=== PATIENT | male | born 1975 | race Caucasian/White ===

== ENCOUNTER 2020-05-21 15:05 | Outpatient (REF) | payer OTHER, SELFPAY | END 2020-05-21 15:06 | disposition home or self-care (01) | LOC: HO.LAB 15:05 | PROVIDERS: Visit Provider Internal Medicine | DX: Z20.828 Contact with and (suspected) exposure to other viral communicable diseases (principal) | CPT/HCPCS: C9803; U0003 ==

== ENCOUNTER 2020-05-26 07:56 | Outpatient (REF) | payer OTHER, SELFPAY | END 2020-05-26 07:57 | disposition home or self-care (01) | LOC: HO.LAB 07:56 | PROVIDERS: PCP Internal Medicine; Visit Provider Internal Medicine | DX: Z20.828 Contact with and (suspected) exposure to other viral communicable diseases (principal) | CPT/HCPCS: C9803; U0003 ==

== ENCOUNTER 2021-06-15 10:25 | Outpatient (REF) | payer OTHER, SELFPAY | END 2021-06-15 10:26 | disposition home or self-care (01) | LOC: HO.HMGCLDS 10:25 | PROVIDERS: Visit Provider Internal Medicine | DX: Z20.822 Contact with and (suspected) exposure to COVID-19 (principal) | CPT/HCPCS: C9803; U0003; U0005 ==

== ENCOUNTER 2021-10-01 08:30 | Outpatient (REF) | payer OTHER, SELFPAY ==
--- NOTE | ~2021-10-01 | MM_ITS ---
EXAMINATION: MM DIAGNOSTIC DIGITAL BREAST TOMOSYNTHESIS, BILATERAL US DIAGNOSTIC ULTRASOUND BREAST, LEFT CLINICAL INFORMATION: Male age 46 with left breast retroareolar pain and fullness for 3-4 months. No prior breast imaging. COMPARISON: None (current study represents initial baseline exam). TECHNIQUE: Digital breast tomosynthesis is performed in both the craniocaudal and mediolateral oblique views along with computer-aided detection (CAD). Synthesized 2D images are generated from the tomosynthesis. Additional spot left CC and spot left ML views are obtained. Ultrasound left breast is performed, targeted to the area of symptoms retroareolar and periareolar region. Grayscale imaging and color Doppler are performed without and with harmonics. FINDINGS: There are scattered areas of fibroglandular density (ACR BI-RADS breast composition Category b). There is asymmetric moderate gynecomastia involving the retroareolar and anterior central left breast. There is no underlying mass or architectural abnormality. No abnormal calcifications. Right breast has scattered benign stromal markings. The axilla and skin contours are unremarkable. Ultrasound left breast demonstrates retroareolar gynecomastia, better appreciated on the mammography. There is no mass or architectural abnormality or focal duct ectasia. No skin thickening or edema tracking in the soft tissue planes. Results are discussed with the patient at time of visit. MM/MM tomosynthesis diagnostic BI IMPRESSION: Asymmetric moderate gynecomastia, left breast. Right breast unremarkable. ASSESSMENT: BI-RADS 2: Benign RECOMMENDATION: Patient should be managed based on the clinical impression. If clinically indicated, further evaluation may be considered with surgical consult. Decision to proceed with biopsy should be based on clinical grounds and degree of clinical concern.
== END 2021-10-01 08:31 | disposition home or self-care (01) ==
LOC: HO.MAMMO 08:30
PROVIDERS: Visit Provider Internal Medicine
DX: N63.23 Unspecified lump in the left breast, lower outer quadrant (principal)
CPT/HCPCS: 76642; 77062; 77066

== ENCOUNTER 2023-05-23 16:41 | Outpatient (AMB) | payer OTHER, SELFPAY ==
--- NOTE | 2023-05-23 16:42 | A.OFFPC_ITS ---
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 Allergies No Known Drug Allergies Allergy (Unknown, Verified 05/23/23 16:43) NONE Medication List - Last Reconciled 05/23/23 by Tavares Ty MD cholestyramine-aspartame 4 gram (Prevalite) 4 grams PO BID omeprazole 20 mg PO DAILY 90 days Tobacco use date assessed: 05/23/23 Dental Screening Dental Screen Date: 05/23/23 Did you have a dental visit in the last 12 months?: Yes Did you have a dental problem in the last 6 months where you did not have access to dental care?: No Was dental information given to patient?: Patient has dentist HPI PHy HPI Details 48-year-old obese male with hypercholest erolemia and GERD last seen in September 2021 patient is here for physical exam. Patient had a left breast mass at that time and an ultrasound was requested. Review of the notes say November 2021 was seen [facility] the [facility] for upper respiratory tract infection. Ultrasound showing a symmetric moderate gynecomastia left breast right breast a normal. intermittent eye pain- aleve- , ? concern on prevalite side effects. dizzy spell occ nause. occ tinnitus, , wakes up sob at times., tired all day snores, watching tv sleeps, no sleepy on driving, [facility] Medical History (Updated 05/23/23 @ 17:11 by Tavares Ty MD) Left breast mass Acne Hypercholesterolemia GERD (gastroesophageal reflux disease) Vitamin D deficiency Obesity (BMI 30-39.9) Surgical History (Updated 09/22/21 @ 20:57 by Tavares Ty MD) History of placement of ear tubes Hx of tonsillectomy History of cholecystectomy Family History (Updated 05/23/23 @ 17:05 by Tavares Ty MD) Mother Myocardial infarct Maternal Aunt Myocardial infarct Paternal Aunt Brain cancer Paternal Uncle Throat cancer Prostate carcinoma Social History (Updated 09/28/21 @ 12:18 by Tavares Ty MD) Housing: House Alcohol intake: never Patient Tobacco Use Status: Never used Tobacco e-Cigarette/Vaping Use: Never Used Second Hand Smoke Exposure: No service: No Current occupational status: employed Cognitive needs: No Hearing needs: No Vision needs: No Questionnaire PHQ-9 Over the last 2 weeks, how often have you been bothered by any of the following problems? 1. Little interest or pleasure in doing things: not at all 2. Feeling down, depressed, or hopeless: not at all 3. Trouble falling or staying asleep, or sleeping too much: not at all 4. Feeling tired or having little energy: not at all 5. Poor appetite or overeating: not at all 6. Feeling bad about yourself - or that you are a failure or have let yourself or your family down: not at all 7. Trouble concentrating on things, such as reading the newspaper or watching television: not at all 8. Moving or speaking so slowly that other people could have noticed. Or the opposite - being so fidgety or restless that you have been moving around a lot more than usual: not at all 9. Thoughts that you would be better off or of hurting yourself in some way: not at all Total score: 0 Depression Screening Interpretation: Negative Depression Screening Done: Yes Source: Developed by Drs. Santosh Ortiz, Codie Schulz, Paramjit Acuña and colleagues, with an educational victor m from [employer]. Thrive Questionnaire Date Thrive assessed: 05/23/23 I am a: Patient What is your living situation today?: I have a steady place to live Within the past 12 months, did the food you bought not last and you didn't have the money to get more?: Never true Within the past 12 months, did you worry whether your food would run out before you got money to buy more?: Never true Do you have trouble paying for medicines?: No Do you have trouble getting transportation to medical appointments?: No Do you have trouble paying your heating and electricity bill?: No Do you have trouble taking care of your child, family member or friend?: No Do you have trouble with day-to-day activities such as bathing, preparing meals, shopping, managing finances, etc.?: No Are you currently unemployed and looking for a job?: No Are you interested in more education?: No AUDIT C Alcohol Use Questionnaire (AUDIT-C) 1. How often do you have a drink containing alcohol?: Monthly or less 2. How many drinks containing alcohol do you have on a typical day when you are drinking?: 1 or 2 3. How often do you have six or more drinks on one occasion?: Never Total Score: 1 KIMMY-7 AMB Questionnaire KIMMY-7 Date KIMMY - 7 assessed: 05/23/23 Feeling nervous, anxious, or on edge: 0 = Not at all Not being able to stop or control worryin = Not at all Worrying too much about different things: 0 = Not at all Trouble relaxin = Not at all Being so restless that it is hard to sit still: 0 = Not at all Becoming easily annoyed or irritable: 0 = Not at all Feeling afraid as if something awful might happen: 0 = Not at all Total KIMMY-7 score (0-4 normal; 5-9 mild; 10-14 moderate; 15-21 severe): 0 Source: Developed by Drs. Santosh Ortiz, Codie Schulz, Paramjit Acuña and colleagues, with an educational victor m from [employer]. Review of Systems Const Denies poor appetite and Denies weakness Eyes Denies no additional complaints ENT Reports Normal hearing present, Denies dizziness, Denies nasal congestion, Denies tinnitus and Denies sore throat Card Denies chest pain, Denies syncope, Denies rapid heart rate and Denies dyspnea Resp Denies cough and Denies dyspnea GI Denies change in stool character, Reports constipation, Denies diarrhea, Denies nausea and Denies vomiting Denies dysuria and Denies urinary frequency Neuro Reports Normal hearing present, Denies confusion, Denies dizziness, Denies syncope and Denies weakness Psych Denies confusion Physical exam (Primary Care) Vital Signs: Last Vital Signs Pulse 93 05/23/23 16:43 BP 116/88 05/23/23 16:43 Pulse Ox 97 05/23/23 16:43 Oxygen Delivery Method Room Air 05/23/23 16:43 BMI result Body Mass Index 38.5 Tobacco/Smoking Status: Tobacco use Status Tobacco use date assessed 05/23/23 05/23/23 16:48 Patient Tobacco Use Status Never used Tobacco 05/23/23 16:43 e-Cigarette/Vaping Use Never Used 05/23/23 16:43 PHQ-9: PHQ-9 Score PHQ-9: Total score 0 05/23/23 16:48 Depression Screening Interpretation: Negative Thrive Assessment: Date of Thrive Assessment Date Thrive assessed 05/23/23 05/23/23 16:48 Const General: No confusion Orientation/consciousness: No confusion HENMT Head: Yes normocephalic Ears: external ears normal and TM's normal bilaterally Face and sinus: Yes normal facial exam Mouth: moist mucous membranes Throat: Yes tonsils normal Eyes Conjunctivae: conjunctivae normal Pupils: Equal, round and reactive pupils present and Pupil accommodation reflex normal Direct Ophthalmoscopy: normal light reflex Neck Neck: No lymphadenopathy Thyroid: Thyroid normal Chest Chest palpation & inspection: normal inspection of the chest Resp Effort & Inspection: normal respiratory effort and no audible wheezes Auscultation: clear to auscultation bilaterally, no crackles, no wheezes and lung sounds not diminished Cardio Rate: regular rate Rhythm: regular rhythm Peripheral pulses: radial pulses present and dorsalis pedis present GI Other: cologuard requested Palpation (GI): no masses Auscultation: normal bowel sounds and normoactive bowel sounds Rectal Exam - Male: Yes deferred Male General Exam: Yes normal external exam Skin General skin exam: no rashes or lesions noted Rashes: no rashes Neuro General: No confusion Cranial nerves: Yes Equal, round and reactive pupils present and Yes Normal hearing present Cognition (Neuro): normal cognition Gait exam (Neuro): Normal gait present Motor exam (neuro): 5/5 motor strength present throughout Deep tendon reflexes (DTR's): Right brachioradialis reflex intensity grade: 2+, Left brachioradialis reflex intensity grade: 2+, Right patellar reflex intensity grade: 2+ and Left patellar reflex intensity grade: 2+ Extrem General: No edema Assessment and Plan Assessment & Plan (1) Annual physical exam: Code(s): Z00.00 - Encounter for general adult medical examination without abnormal findings (2) Hypercholesterolemia: Code(s): E78.00 - Pure hypercholesterolemia, unspecified Plan: Avoid fried foods, chicken skin, eggs, butter margarine, pastries and meat. Be it pork or beef they have a lot of cholesterol LDL goal of less than 130 and triglyceride of less than 150. Blood work requested (3) GERD (gastroesophageal reflux disease): Code(s): K21.9 - Gastro-esophageal reflux disease without esophagitis Plan: Avoid the foods that causes that usually spicy foods, tomato products, juices, coffee, soda and foods that your sensitive to. After eating do not lie down, allow 3-4 hours before in lie down. And keep the head of bed above 30 degrees to avoid the acid from going up. 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 Panel Today E78.00 - Pure hypercholesterolemia, unspecified Complete Blood Count Auto Diff Today E78.00 - Pure hypercholesterolemia, unspecified Thyroid Stimulating Hormone Today E78.00 - Pure hypercholesterolemia, unspecified Vitamin B12 and Folate Today E78.00 - Pure hypercholesterolemia, unspecified Lipid Panel Today E78.00 - Pure hypercholesterolemia, unspecified Ferritin Today D64.9 - Anemia, unspecified IRON PROFILE Today D64.9 - Anemia, unspecified Reticulocyte Count Today D64.9 - Anemia, unspecified Free T4 (Free Thyroxine) Today E78.00 - Pure hypercholesterolemia, unspecified RT home sleep study Today G47.10 - Hypersomnia, unspecified Referrals Cologuard Test Z12.11 - Encounter for screening for malignant neoplasm of colon, Z12.12 - Encounter for screening for malignant neoplasm of rectum Coding Level of Care Code Est Pt Prev Care 40-64y(59314) Diagnoses Annual physical exam Z00.00 Hypercholesterolemia E78.00 GERD (gastroesophageal reflux disease) K21.9 Obesity (BMI 30-39.9) E66.9 Bile salt-induced diarrhea K90.89 Anemia D64.9 Colon cancer screening Z12.11 Gynecomastia N62 Hypersomnia G47.10
[2023-05-23 16:43] VITALS: BP 116/88; PULSE 93; O2SAT 97; BMI 38.5
== END 2023-05-23 17:27 | disposition home or self-care (01) ==
PROVIDERS: Visit Provider Internal Medicine
DX: Z00.00 Encounter for general adult medical examination without abnormal findings (principal); E66.9 Obesity, unspecified; Z68.38 Body mass index [BMI] 38.0-38.9, adult; E78.00 Pure hypercholesterolemia, unspecified; K21.9 Gastro-esophageal reflux disease without esophagitis; K90.89 Other intestinal malabsorption; D64.9 Anemia, unspecified; Z12.11 Encounter for screening for malignant neoplasm of colon; N62 Hypertrophy of breast; G47.10 Hypersomnia, unspecified
CPT/HCPCS: 99396

== ENCOUNTER 2023-07-18 11:14 | Outpatient (AMB) | payer OTHER, SELFPAY ==
[2023-07-18 13:17] VITALS: BP 110/70; PULSE 75; TEMP 36.4; O2SAT 98; BMI 36.8
--- NOTE | 2023-07-18 13:17 | AM.OFFWIN_ITS ---
Intake Vital Signs 07/18/23 13:17 Height 6 ft 4 in Weight 136.985 kg BMI 36.8 BP 110/70 Blood Pressure Location Lt brachial Position Sitting Pulse 75 Pulse Source Pulse Oximeter Temp 97.6 F Temp Source Temporal Artery Scan Pulse Oximetry (%) 98 Intake Visit Reasons: EST/right eye pain sinus pressure(lobby) Intake Note: pt is here today for rt eye pain sinus pressure started today Patient Tobacco Use Status: Never used Tobacco Allergies No Known Drug Allergies Allergy (Unknown, Verified 05/23/23 16:43) NONE Do you need a note to return to daycare/school/sports/work: Yes HPI HPI Comments History of Present Illness Details 48 year old male positive for COVID abou t a week ago presents with si nus pressure, congestion and intermittent discomfort to his right eye, earlier this morning he experienced a sharp pain to his right eye and his right nostril. He reports he just feels congested in his having a lot of yellow/green discharge from his nose. at home was sick with similar symptoms. He does not seem to be improving. He recently saw an eye doctor who did a full examination and it was unremarkable. Patient denies headache, vision changes, dizziness, weakness, chest pain, shortness of breath, nausea, vomiting, abdominal pain On exam patient does have discomfort with palpation of facial sinuses. History and physical exam concerning for sinusitis. Unlikely wet macular degeneration, acute closed angle glaucoma. No signs of meningitis or encephalitis. Will treat for sinusitis with Augmentin and prednisone. Patient will call his eye doctor to go get seen due to right eye pain. He tells me he will call right now to see if he can get in today. Educated patient on diagnosis and treatment plan, answered all question, patient verbalizes understanding. At this time patient will be discharged home, advised to return with new or worsening symptoms. Educated on worrisome signs and symptoms and when to return. At this time I feel comfortable discharge home. [facility] Medical History Left breast mass Acne Hypercholesterolemia GERD (gastroesophageal reflux disease) Vitamin D deficiency Obesity (BMI 30-39.9) Surgical History History of placement of ear tubes Hx of tonsillectomy History of cholecystectomy Family History Mother Myocardial infarct Maternal Aunt Myocardial infarct Paternal Aunt Brain cancer Paternal Uncle Throat cancer Prostate carcinoma Social History Housing: House Alcohol intake: never Patient Tobacco Use Status: Never used Tobacco e-Cigarette/Vaping Use: Never Used Second Hand Smoke Exposure: No service: No Current occupational status: employed Cognitive needs: No Hearing needs: No Vision needs: No Review of Systems Const All systems reviewed & are unremarkable except as noted in HPI and below Physical Exam Vital Signs: vss Appearance: Alert.? Oriented X3.? No acute distress.? Head: Normocephalic, atraumatic, no step-offs or deformities. Discomfort with palpation of facial sinuses. Eyes: Pupils equal, round and reactive to light.? CVS: Normal heart rate and rhythm.? Pulses normal.? Respiratory: No respiratory distress.? Breath sounds normal.? Abdomen: Soft and nontender.? Skin: Skin warm and dry.? Normal skin color.? Normal skin turgor.? Extremities: No lower extremity edema.? No calf ttp. 5/5 strength to bilateral upper and lower extremities Neuro: Oriented X 3.? No motor deficit.? No sensory deficit. CN 2-12 intact Assessment & Plan Assessment & Plan (1) Sinusitis: Code(s): J32.9 - Chronic sinusitis, unspecified Plan Take your medications as prescribed. If you were prescribed antibiotics today, it is important that you take your medication to their entirety, do not skip any doses, do not finish them early. Follow-up with your primary care provider this week. Return to the emergency department with new or worsening symptoms. Such as fevers, chills, chest pain, shortness of breath, nausea, vomiting, dizziness, headache, vision changes, lethargy In case of emergency call 911 Medications: New amoxicillin-pot clavulanate 875-125 mg 1 tab PO BID 20 tabs 0RF 10 days prednisone 40 mg (2 x 20 mg) PO DAILY 10 tabs 0RF 5 days Coding Level of Care Code Est Pt Level 3 (20665) Diagnoses Sinusitis J32.9
== END 2023-07-18 13:58 | disposition home or self-care (01) ==
PROVIDERS: PCP Internal Medicine; Visit Provider Physician Assistant
DX: J32.9 Chronic sinusitis, unspecified (principal)
CPT/HCPCS: 99213

== ENCOUNTER 2024-06-22 16:18 | Outpatient (AMB) | payer OTHER, SELFPAY ==
[2024-06-22 16:23] VITALS: BP 110/84; PULSE 97; O2SAT 96; BMI 38.7
--- NOTE | 2024-06-22 16:23 | MHC.PC.OV ---
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 Accompanied by: Self / Same As Patient Allergies No Known Drug Allergies Allergy (Unknown, Verified 06/22/24 16:23) NONE Medication List - Last Reconciled 06/22/24 by Tavares Ty MD ascorbate calcium (vitamin C) 500 mg PO DAILY cholestyramine-aspartame 4 gram (Prevalite) 4 grams PO BID Tobacco use date assessed: 06/22/24 Dental Screening Dental Screen Date: 06/22/24 Did you have a dental visit in the last 12 months?: Yes Did you have a dental problem in the last 6 months where you did not have access to dental care?: No Was dental information given to patient?: Patient has dentist HPI Physical Exam HPI Details The patient is a 49-year-old male presenting with the need for follow-up on blood work results, which have previously indicated mild anemia and elevated liver enzymes that revealed a history of nonalcoholic fatty liver disease. The anemia presented with a hemoglobin level of 13.7, slightly below the normal range. The patient has a family history of cardiovascular disease and cancer, which increases his risk profile. Previously, an ultrasound exhibited fatty liver, a finding that requires ongoing monitoring. Additionally, the patient has experienced episodes of dizziness characterized as a heart-sinking sensation, accompanied by intermittent hot flashes but no palpitations or loss of consciousness. He reports subjective dizzy spells particularly exacerbated by stress or warmth but denies any nausea or vomiting. The symptoms seem not to interfere during work. He denies any history of smoking, substance use, or recreational drug use. The patient also describes experiencing heartburn sporadically, often after consuming spicy foods. Moreover, the patient has multiple cutaneous cysts; a newly noticed one near the sternum and another on the left shoulder, which seems to be enlarging. - Patient has engaged in nutritional improvements and increased physical activity, walking 30 minutes daily. - He has eliminated soda from his diet and avoids fried foods. - Patient declined flu vaccine but was advised on ongoing flu, COVID, RSV, and norovirus season risks. - Cologuard for colorectal cancer screening is ordered for at-home testing. - Occupation: Works in the [employer] industry; high screen time. - Exercise: Recently increased physical activity, walking 30 minutes daily. - Diet: Reduced soda consumption and fried food intake, occasionally indulges in spicy foods. - Family History: Family members with heart attacks, brain cancer, prostate cancer, throat cancer, and a stroke. - No substance use: Denies tobacco, alcohol, and recreational drug use. - Reports no issues with housing or employment status. - General: Denies fever or chills. - Head and Neck: Denies problems swallowing or hearing difficulties. - Cardiovascular: Denies chest pain but reports episodes of dizziness and heart-sinking sensation. - Respiratory: Denies shortness of breath. - Gastrointestinal: Reports intermittent heartburn associated with spicy food intake. - Genitourinary: Denies nocturia but reports normal urination. - Skin: Reports cutaneous cysts in the shoulder and chest areas. - Labs: Previous history of mild anemia with hemoglobin at 13.7 g/dL; elevated liver enzymes and triglycerides noted. [facility] Medical History Left breast mass Acne Hypercholesterolemia GERD (gastroesophageal reflux disease) Vitamin D deficiency Obesity (BMI 30-39.9) Surgical History History of placement of ear tubes Hx of tonsillectomy History of cholecystectomy Family History (Updated 06/22/24 @ 16:55 by Tavares Ty MD) Mother Myocardial infarct CVA (cerebral vascular accident) Maternal Aunt Myocardial infarct Paternal Aunt Brain cancer Paternal Uncle Throat cancer Prostate carcinoma Social History Housing: House Alcohol intake: never Patient Tobacco Use Status: Never used Tobacco e-Cigarette/Vaping Use: Never Used Second Hand Smoke Exposure: No service: No Current occupational status: employed Cognitive needs: No Hearing needs: No Vision needs: No Questionnaire PHQ-9 Over the last 2 weeks, how often have you been bothered by any of the following problems? 1. Little interest or pleasure in doing things: not at all 2. Feeling down, depressed, or hopeless: not at all 3. Trouble falling or staying asleep, or sleeping too much: not at all 4. Feeling tired or having little energy: several days 5. Poor appetite or overeating: several days 6. Feeling bad about yourself - or that you are a failure or have let yourself or your family down: not at all 7. Trouble concentrating on things, such as reading the newspaper or watching television: not at all 8. Moving or speaking so slowly that other people could have noticed. Or the opposite - being so fidgety or restless that you have been moving around a lot more than usual: not at all 9. Thoughts that you would be better off or of hurting yourself in some way: not at all Total score: 2 Source: Developed by Drs. Santosh Ortiz, Codie Schulz, Paramjit Acuña and colleagues, with an educational victor m from [employer]. Thrive Questionnaire Date Thrive assessed: 06/22/24 I am a: Patient What is your living situation today?: I have a steady place to live Within the past 12 months, did the food you bought not last and you didn't have the money to get more?: Never true Within the past 12 months, did you worry whether your food would run out before you got money to buy more?: Never true Do you have trouble paying for medicines?: No Do you have trouble getting transportation to medical appointments?: No Do you have trouble paying your heating and electricity bill?: No Do you have trouble taking care of your child, family member or friend?: No Do you have trouble with day-to-day activities such as bathing, preparing meals, shopping, managing finances, etc.?: No Are you currently unemployed and looking for a job?: No Are you interested in more education?: No Please select the resources that you would like help with: None Currently or been in a relationship where the following occur: I choose not to answer THRIVE Score: 0 AUDIT C Alcohol Use Questionnaire (AUDIT-C) 1. How often do you have a drink containing alcohol?: Never Total Score: 0 KIMMY-7 AMB Questionnaire KIMMY-7 Date KIMMY - 7 assessed: 06/22/24 Feeling nervous, anxious, or on edge: 0 = Not at all Not being able to stop or control worryin = Not at all Worrying too much about different things: 0 = Not at all Trouble relaxin = Not at all Being so restless that it is hard to sit still: 0 = Not at all Becoming easily annoyed or irritable: 0 = Not at all Feeling afraid as if something awful might happen: 0 = Not at all Total KIMMY-7 score (0-4 normal; 5-9 mild; 10-14 moderate; 15-21 severe): 0 Source: Developed by Drs. Santosh Ortiz, Codie Schulz, Paramjit Acuña and colleagues, with an educational victor m from [employer]. Review of Systems Const Denies poor appetite and Denies weakness Eyes Denies no additional complaints ENT Reports Normal hearing present, Denies dizziness, Denies nasal congestion, Denies tinnitus and Denies sore throat Card Denies chest pain, Denies syncope, Denies rapid heart rate and Denies dyspnea Resp Denies cough and Denies dyspnea GI Denies change in stool character, Reports constipation, Denies diarrhea, Denies nausea and Denies vomiting Denies dysuria and Denies urinary frequency Neuro Reports Normal hearing present, Denies confusion, Denies dizziness, Denies syncope and Denies weakness Psych Denies confusion Physical exam (Primary Care) Vital Signs: Last Vital Signs Pulse 97 06/22/24 16:23 BP 110/84 06/22/24 16:23 Pulse Ox 96 06/22/24 16:23 Oxygen Delivery Method Room Air 06/22/24 16:23 BMI result Body Mass Index 38.7 Tobacco/Smoking Status: Tobacco use Status Tobacco use date assessed 06/22/24 06/22/24 16:24 Patient Tobacco Use Status Never used Tobacco 06/22/24 16:24 e-Cigarette/Vaping Use Never Used 06/22/24 16:24 PHQ-9: PHQ-9 Score PHQ-9: Total score 2 06/22/24 16:51 Thrive Assessment: Date of Thrive Assessment Date Thrive assessed 06/22/24 06/22/24 16:24 Currently or been in a relationship where the following occur: I choose not to answer Const General: No confusion Orientation/consciousness: No confusion HENMT Head: Yes normocephalic Ears: external ears normal and TM's normal bilaterally Face and sinus: Yes normal facial exam Mouth: moist mucous membranes Throat: Yes tonsils normal Eyes Conjunctivae: conjunctivae normal Pupils: Equal, round and reactive pupils present and Pupil accommodation reflex normal Direct Ophthalmoscopy: normal light reflex Neck Neck: No lymphadenopathy Thyroid: Thyroid normal Chest Chest palpation & inspection: normal inspection of the chest Resp Effort & Inspection: normal respiratory effort and no audible wheezes Auscultation: clear to auscultation bilaterally, no crackles, no wheezes and lung sounds not diminished Cardio Rate: regular rate Rhythm: regular rhythm Peripheral pulses: radial pulses present and dorsalis pedis present GI Palpation (GI): no masses Auscultation: normal bowel sounds and normoactive bowel sounds Rectal Exam - Male: Yes deferred Skin General skin exam: no rashes or lesions noted Rashes: no rashes Neuro General: No confusion Cranial nerves: Yes Equal, round and reactive pupils present and Yes Normal hearing present Cognition (Neuro): normal cognition Gait exam (Neuro): Normal gait present Motor exam (neuro): 5/5 motor strength present throughout Deep tendon reflexes (DTR's): Right brachioradialis reflex intensity grade: 2+, Left brachioradialis reflex intensity grade: 2+, Right patellar reflex intensity grade: 2+ and Left patellar reflex intensity grade: 2+ Extrem General: No edema Shoulder/upper arm images: 1. 4 by 4 cm mass no redness 2. 3by 3 cm 3. 2 by 2 cm mass noted on the skin Coding Level of Care Code Est Pt Prev Care 40-64y(92286) Diagnoses Annual physical exam Z00.00 Obesity (BMI 30-39.9) E66.9 GERD (gastroesophageal reflux disease) K21.9 Hypercholesterolemia E78.00 LFT elevation R79.89 Anemia D64.9 Colon cancer screening Z12.11 Epidermal cyst L72.0 Assessment & Plan Assessment & Plan (1) Annual physical exam: Code(s): Z00.00 - Encounter for general adult medical examination without abnormal findings Category: Medical (2) Obesity (BMI 30-39.9): Code(s): E66.9 - Obesity, unspecified Category: Medical (3) GERD (gastroesophageal reflux disease): Code(s): K21.9 - Gastro-esophageal reflux disease without esophagitis Category: Medical (4) Hypercholesterolemia: Code(s): E78.00 - Pure hypercholesterolemia, unspecified Category: Medical (5) LFT elevation: Code(s): R79.89 - Other specified abnormal findings of blood chemistry Category: Medical (6) Anemia: Code(s): D64.9 - Anemia, unspecified Category: Medical (7) Colon cancer screening: Code(s): Z12.11 - Encounter for screening for malignant neoplasm of colon Category: Medical (8) Epidermal cyst: Comment: L shoulder , Sternal area x 2 Code(s): L72.0 - Epidermal cyst Category: Medical Plan - Schedule ultrasound to reassess liver condition and monitor fatty liver. - Blood work planned to reevaluate for anemia, liver function, and triglyceride levels. - Referral to a surgeon for evaluation and potential excision of growing left shoulder cyst. - Management of dizziness through lifestyle modifications and further evaluation if symptoms persist. - Encourage continued exercise and dietary modifications. I discussed with the patient the necessity of repeated blood work to monitor anemia and liver-related enzyme abnormalities. Given the history of mild anemia and nonalcoholic fatty liver disease, I emphasized the importance of dietary adjustments and regular exercise in managing these conditions. For the noted cysts, I advised that the potential growth and discomfort of the left shoulder cyst warranted a referral to a specialist for further surgical evaluation. We reviewed the recommended home screening via Cologuard for colorectal cancer and discussed the significance of staying up-to-date with vaccinations, particularly with the current flu and COVID risk. I reassured the patient about his symptoms of dizziness, connected potentially to environmental factors, recommending lifestyle adjustments and follow-up if the symptoms continue or worsen. - Continue daily exertion, maintaining at least 30 minutes of walking each day. - Sustain dietary improvements by limiting spicy foods and increasing water intake to at least four bottles a day. - Complete the at-home Cologuard test as soon as it arrives. - Follow up for scheduled blood tests and ensure results are reviewed. - Monitor cutaneous cysts for changes in size or pain and report any significant changes. - If dizziness persists or worsens, promptly schedule a follow-up appointment. - Stay informed about vaccinations and consider receiving the flu vaccine. Orders: Orders Vitamin B12 and Folate Today D64.9 - Anemia, unspecified Free T4 (Free Thyroxine) Today K21.9 - Gastro-esophageal reflux disease without esophagitis Thyroid Stimulating Hormone Today K21.9 - Gastro-esophageal reflux disease without esophagitis Hepatitis B,C Profile Today K21.9 - Gastro-esophageal reflux disease without esophagitis, R79.89 - Other specified abnormal findings of blood chemistry US abdomen complete Today K21.9 - Gastro-esophageal reflux disease without esophagitis, R79.89 - Other specified abnormal findings of blood chemistry Complete Blood Count Auto Diff Today D64.9 - Anemia, unspecified Ferritin Today D64.9 - Anemia, unspecified Reticulocyte Count Today D64.9 - Anemia, unspecified IRON PROFILE Today D64.9 - Anemia, unspecified Comprehensive Met. Panel Today K21.9 - Gastro-esophageal reflux disease without esophagitis Lipid Panel Today E78.00 - Pure hypercholesterolemia, unspecified, K21.9 - Gastro-esophageal reflux disease without esophagitis UA CC w/rflx Micro + Cult Today L72.0 - Epidermal cyst, R30.0 - Dysuria Referrals Cologuard Test Z12.11 - Encounter for screening for malignant neoplasm of colon, Z12.12 - Encounter for screening for malignant neoplasm of rectum General Surgery Referral L72.0 - Epidermal cyst
== END 2024-06-22 17:23 | disposition home or self-care (01) ==
PROVIDERS: PCP Internal Medicine; Visit Provider Internal Medicine
DX: Z00.00 Encounter for general adult medical examination without abnormal findings (principal); E66.9 Obesity, unspecified; Z68.38 Body mass index [BMI] 38.0-38.9, adult; K21.9 Gastro-esophageal reflux disease without esophagitis; E78.00 Pure hypercholesterolemia, unspecified; R79.89 Other specified abnormal findings of blood chemistry; D64.9 Anemia, unspecified; Z12.11 Encounter for screening for malignant neoplasm of colon; L72.0 Epidermal cyst

== ENCOUNTER → 2024-06-22 16:18 | Outpatient (BNVA) | payer OTHER, SELFPAY | PROVIDERS: PCP Internal Medicine; Visit Provider Internal Medicine ==

== ENCOUNTER 2024-07-12 09:55 | Outpatient (AMB) | payer OTHER, SELFPAY ==
--- NOTE | 2024-07-12 10:23 | MHC.OFFWIV ---
Intake Vital Signs 07/12/24 10:25 Height 6 ft 4 in Weight 324 lb BMI 39.4 BP 110/74 Blood Pressure Location Lt brachial Position Sitting Pulse 97 Pulse Source Pulse Oximeter Temp 98.0 F Temp Source Oral Pulse Oximetry (%) 94 Oxygen Delivery Method Room Air Intake Visit Reasons: EP cough, wheezing Intake Note: Patient here for cough, wheezing which started about 5-7 days. Patient Tobacco Use Status: Never used Tobacco Allergies No Known Drug Allergies Allergy (Unknown, Verified 07/12/24 10:25) NONE Do you need a note to return to daycare/school/sports/work: Yes HPI HPI Comments History of Present Illness Details 49 y/o male patient who presents to the walk in clinic with c/o URI symptoms. Reports coughing, SOB, wheezing and CP for 5-7 days now. [facility] Medical History (Updated 07/12/24 @ 10:46 by Linda Hayes NP) Cough Acute respiratory disease Left breast mass Acne Hypercholesterolemia GERD (gastroesophageal reflux disease) Vitamin D deficiency Obesity (BMI 30-39.9) Surgical History History of placement of ear tubes Hx of tonsillectomy History of cholecystectomy Family History (Updated 06/22/24 @ 16:55 by Tavares Ty MD) Mother Myocardial infarct CVA (cerebral vascular accident) Maternal Aunt Myocardial infarct Paternal Aunt Brain cancer Paternal Uncle Throat cancer Prostate carcinoma Social History Housing: House Alcohol intake: never Patient Tobacco Use Status: Never used Tobacco e-Cigarette/Vaping Use: Never Used Second Hand Smoke Exposure: No service: No Current occupational status: employed Cognitive needs: No Hearing needs: No Vision needs: No Review of Systems Const All systems reviewed & are unremarkable except as noted in HPI and below Physical Exam Vital Signs: Last Vital Signs Temp 98.0 F 07/12/24 10:25 Pulse 97 07/12/24 10:25 BP 110/74 07/12/24 10:25 Pulse Ox 94 07/12/24 10:25 Oxygen Delivery Method Room Air 07/12/24 10:25 BMI result Body Mass Index 39.4 Const General: cooperative and no acute distress Nutritional Appearance: obese Orientation/consciousness: patient oriented x3 HEENT Head: Yes normocephalic Ears: external ears normal and TM abnormal bulging bilateral and with fluid behind the TM bilateral General nose exam: Normal nasal mucous membranes and turbinates present Face and sinus: Yes sinuses nontender Mouth: moist mucous membranes Resp Effort & Inspection: normal respiratory effort, able to speak in complete sentences and Actively coughing Auscultation: no crackles, no rales, rhonchi and wheezes Cardio Heart sounds: S1 normal heart sound present and S2 normal heart sound present Neuro General: patient oriented x3 Assessment & Plan Assessment & Plan (1) Acute respiratory disease: Code(s): J06.9 - Acute upper respiratory infection, unspecified Plan: Ordered Zpack Ordered Cough medicine Rest and hydrate well with fluids (2) Cough: Code(s): R05.9 - Cough, unspecified Qualifiers: Cough type: acute Qualified Code(s): R05.1 - Acute cough Plan: Ordered Zpack Ordered Cough medicine Rest and hydrate well with fluids Medications: New prednisone 50 mg PO DAILY 5 days 5 tabs 0RF J06.9 - Acute upper respiratory infection, unspecified, R05.1 - Acute cough benzonatate 100 mg PO TID 90 caps 0RF J06.9 - Acute upper respiratory infection, unspecified, R05.1 - Acute cough azithromycin 500 mg PO DAILY 3 days 3 tabs 0RF J06.9 - Acute upper respiratory infection, unspecified, R05.1 - Acute cough Coding Level of Care Code Est Pt Level 3 (29946) Diagnoses Acute respiratory disease J06.9 Acute cough R05.1 Cough type: acute Time Spent (min) 15
[2024-07-12 10:25] VITALS: BP 110/74; PULSE 97; TEMP 36.7; O2SAT 94; BMI 39.4
== END 2024-07-12 12:54 | disposition home or self-care (01) ==
PROVIDERS: PCP Internal Medicine; Visit Provider Nurse Practitioner Family
DX: J06.9 Acute upper respiratory infection, unspecified (principal); R05.1 Acute cough

== ENCOUNTER → 2024-07-12 09:55 | Outpatient (BNVA) | payer OTHER, SELFPAY | PROVIDERS: PCP Internal Medicine ==

== ENCOUNTER 2024-07-19 13:44 | Outpatient (REF) | payer OTHER, SELFPAY ==
--- NOTE | ~2024-07-19 | XR_ITS ---
EXAMINATION: XR CHEST CLINICAL INFORMATION: R05.9 - Cough, unspecified COMPARISON: None available. TECHNIQUE: 2 views of the chest were obtained. FINDINGS: Pulmonary reticular pattern. No hyperinflation. No consolidation pleural effusion or pneumothorax. Cardiomediastinal silhouette is normal in size. Multilevel thoracic spondylosis. XR/XR chest 2V IMPRESSION: No acute airspace disease. Electronically signed by: Chris Arenas MD 07/19/2024 02:45 PM EST
== END 2024-07-19 13:45 | disposition home or self-care (01) ==
LOC: HO.XRAY 13:44
PROVIDERS: PCP Internal Medicine; Visit Provider Internal Medicine
DX: R05.9 Cough, unspecified (principal)
CPT/HCPCS: 71046

== ENCOUNTER → 2024-07-19 14:29 | Outpatient (BNV) | payer OTHER, SELFPAY | PROVIDERS: PCP Internal Medicine; Visit Provider Radiology Diagnostic Radiology | DX: R05.9 Cough, unspecified (principal) | CPT/HCPCS: 71046 ==

== ENCOUNTER 2024-07-20 09:09 | Outpatient (REF) | payer OTHER, SELFPAY ==
--- NOTE | ~2024-07-20 | US_ITS ---
CLINICAL HISTORY: R79.89 - Other specified abnormal findings of blood chemistry US abdomen complete Comparison: US - ABDOMEN ULTRASOUND - 03/01/2018 09:31 AM EDT Findings: The visualized pancreas is normal. The aorta and inferior vena cava are normal caliber. The appearance of the liver suggests fatty infiltration without focal lesion. There is no intrahepatic bile duct dilatation. The common duct is 5.0 mm in diameter. There are no abnormal findings in the gallbladder fossa. There is no sonographic Santos sign. The main portal vein is antegrade. The right kidney is 11.6 cm in length. The left kidney is 12.6 cm in length. The spleen is normal. No ascites. IMPRESSION: 1. Hepatic steatosis. This document has been electronically signed by: Jude Yeboah MD on 07/21/2024 09:09:50
[2024-07-20 09:24] LABS: MANUAL DIFF FLAG NO
[2024-07-20 10:16] LABS: Basophils Percent Auto 0.2 % (0-2); Hematocrit 44.3 % (42.0-52.0); Hemoglobin 14.2 g/dl (14.0-18.0); Imm Gran Abs Auto 0.06 X10*3/uL (0.00-0.03); Imm Gran Pct Auto 0.6 % (0.0-0.4); Lymphocytes Absolute Auto 1.2 X10*3/uL (1.2-4.9); Lymphocytes Percent Auto 11.2 % (20-40); Mean Corpuscular HGB Conc 32.1 g/dl (31.0-36.0); Mean Corpuscular Volume 81.1 fL (80.0-98.0); Mean Platelet Volume 9.8 fL (9.4-12.4); Monocytes Absolute Auto 0.5 X10*3/uL (0.1-1.2); Monocytes Percent Auto 4.3 % (2-11); Neutrophils Absolute Auto 8.9 x10*3/uL (2.0-8.3); Neutrophils Percent Auto 83.7 % (45-73); Platelet Count 416 X10*3/uL (160-400); Red Blood Count 5.46 X10*6/uL (4.60-5.80); Red Cell Distribution Width 14.9 % (11.0-16.0); Retic HGB Equivalent 30.8 pg (30.0-35.0); Reticulocyte Percent 1.9 % (0.5-1.8); Reticulocytes Absolute 0.103 X10*6/uL (0.026-0.095); White Blood Count 10.7 X10*3/uL (4.8-10.8)
[2024-07-20 10:38] LABS: Alanine Aminotransferase 71 U/L (0-40); Albumin Level 4.4 g/dL (3.5-5.0); Alkaline Phosphatase 58 U/L (39-117); Anion Gap 9 (12-20); Aspartate Amino Transferase 32 U/L (5-37); Bilirubin Total 0.4 mg/dL (0.0-1.0); Blood Urea Nitrogen 8 mg/dL (9-16); Calcium 9.4 mg/dL (8.4-10.2); Carbon Dioxide 25 mmol/L (22-29); Chloride 108 mmol/L (96-108); Cholesterol 185 mg/dL (<200); Estimated Glomerular Filt Rate > 60; Glucose Random 117 mg/dL (60-115); HDL Cholesterol 38 mg/dL (>40); Iron 90 mcg/dL (45-160); LDL Cholesterol Calculated 127 mg/dL (<100); Percent Iron Saturation 39 % (15-50); Potassium 4.3 mmol/L (3.3-5.1); Sodium 138 mmol/L (135-145); Total Iron Binding Capacity 232 mcg/dL (228-428); Total Protein 7.7 g/dL (6.5-8.0); Triglycerides 101 mg/dL (<150); Unsaturated Iron Binding 142 ug/dL
[2024-07-20 10:50] LABS: HBS Num1 0.81 mIU/mL (0-7.99); HBc Num1 0.58 S/CO (0.00-0.79); HBsAGNum1 0.41 S/CO (0.00-0.99); Hepatitis B Core Antibody Nonreactive (Nonreactive); Hepatitis B Surface Antigen Negative (Negative); ~HepC Num1 0.12 S/CO (0.00-0.79); ~Hepatitis B Surface Antibody NONREACTIVE (Nonreactive); ~Hepatitis C Antibody Nonreactive (Nonreactive)
[2024-07-20 10:57] LABS: Ferritin 1222 ng/mL (20-250); Free T4 (Free Thyroxine) 1.15 ng/dL (0.71-1.85)
[2024-07-20 11:12] LABS: Appearance Urine Clear; Color Urine Yellow; Glucose Urine UA Negative (Negative); Leukocyte Esterase Urine Negative (Negative); Nitrite Urine Negative (Negative); PH 5.5 (5.0-9.0); Specific Gravity - Urine 1.025 (1.005-1.025); Urine Blood Negative (Negative); Urine Ketones Negative (Negative); Urine Protein Negative (Neg-Trace)
[2024-07-20 11:21] LABS: Folate 10.8 ng/mL (> or = 4.0); Vitamin B12 661 pg/mL (200-900)
== END 2024-07-20 09:10 | disposition home or self-care (01) ==
LOC: HO.US 09:09
PROVIDERS: PCP Internal Medicine; Visit Provider Internal Medicine
DX: D64.9 Anemia, unspecified (principal); K21.9 Gastro-esophageal reflux disease without esophagitis; E78.00 Pure hypercholesterolemia, unspecified; R30.0 Dysuria; L72.0 Epidermal cyst; R79.89 Other specified abnormal findings of blood chemistry; K76.0 Fatty (change of) liver, not elsewhere classified
CPT/HCPCS: 36415; 76700; 80053; 80061; 81003; 82607; 82728; 82746; 83540; 84439; 84443; 85025; 85045; 86704; 86706; 86803; 87340

== ENCOUNTER → 2024-07-20 09:31 | Outpatient (BNV) | payer OTHER, SELFPAY | PROVIDERS: PCP Internal Medicine; Visit Provider Specialist | DX: R79.89 Other specified abnormal findings of blood chemistry (principal) | CPT/HCPCS: 76700 ==

== ENCOUNTER 2024-09-25 08:49 | Outpatient (AMB) | payer OTHER, SELFPAY ==
--- NOTE | 2024-09-25 08:59 | A.OFFVIS_ITS ---
Vital Signs 3 09/25/24 09:08 Height 6 ft 4 in Weight 304 lb 3.806 oz BMI 37.0 Pulse 92 Intake Visit Reasons: Cyst~ Lt sup shoulder Intake Note: Patient is seen in office for evaluation of a multiple skin cyst. 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 He describes the presence of soft tissue masses over the left shoulder, sternum area, left breast, and left lower back, which have existed for several years. Recently, the patient notes increasing discomfort and size, particularly in the left shoulder and sternum area lipomas, with a timeframe of symptom exacerbation over the past two weeks. Previous imaging and evaluation conducted three years ago yielded normal results. The patient has not undergone surgical removal of lipomas previously and expresses a degree of apprehension regarding the procedure. His medical history is otherwise unremarkable, with no history of major chronic conditions such as diabetes or hypertension, and reports being mindful of his nutritional intake. [facility] Medical History Cough Acute respiratory disease Left breast mass Acne Hypercholesterolemia GERD (gastroesophageal reflux disease) Vitamin D deficiency Obesity (BMI 30-39.9) Surgical History History of placement of ear tubes Hx of tonsillectomy History of cholecystectomy Family History Mother Myocardial infarct CVA (cerebral vascular accident) Maternal Aunt Myocardial infarct Paternal Aunt Brain cancer Paternal Uncle Throat cancer Prostate carcinoma Social History Housing: House Alcohol intake: never Patient Tobacco Use Status: Never used Tobacco e-Cigarette/Vaping Use: Never Used Second Hand Smoke Exposure: No service: No Current occupational status: employed Cognitive needs: No Hearing needs: No Vision needs: No Review of Systems Const All systems reviewed & are unremarkable except as noted in HPI and below Physical Exam Const General: cooperative and no acute distress Nutritional Appearance: well nourished Orientation/consciousness: patient oriented x3 Limitations: no limitations HEENT Head: Yes normocephalic and Yes atraumatic Ears: hearing grossly normal bilaterally Resp Effort & Inspection: normal respiratory effort, no audible wheezes, no cough and no respiratory distress Cardio Jugular venous distension: no JVD GI Inspection: Yes normal to inspection Skin Other: Warm, dry, no rash Full body images: 2 1. 5 cm soft, mobile lipoma in the lower outer quadrant left breast 2. 2 cm soft, mobile lipoma in the midsternum to the left of midline 3. 2 cm soft, mobile lipoma in the left posterior shoulder 4. 2 cm soft, mobile lipoma in the lower left back Neuro General: patient oriented x3 Extrem General: Yes no clubbing, cyanosis or edema Assessment & Plan Assessment & Plan (1) Lipoma: Code(s): D17.9 - Benign lipomatous neoplasm, unspecified Category: Medical Qualifiers: Lipoma location: trunk Qualified Code(s): D17.1 - Benign lipomatous neoplasm of skin and subcutaneous tissue of trunk Plan 49-year-old male patient presenting with several large lipomas including in the left lateral breast, left sternum, left posterior shoulder and left lower back. Patient reports increased discomfort associated with the lesions and has requested excision of all 4 lesions. After discussion of the procedure, risks, and alternatives, he consents to excision of the left breast, left sternum, left posterior shoulder, and left lower back lipomas as a short-stay surgery. Coding Level of Care Code New Pt Level 4 (91039) Diagnoses Lipoma of torso D17.1 Lipoma location: trunk
[2024-09-25 09:08] VITALS: PULSE 92; BMI 37.0
== END 2024-09-25 09:22 | disposition home or self-care (01) ==
LOC: HO.HGS 08:50
PROVIDERS: PCP Internal Medicine; Visit Provider Surgery
DX: D17.1 Benign lipomatous neoplasm of skin and subcutaneous tissue of trunk (principal)
CPT/HCPCS: 99204

== ENCOUNTER 2024-10-01 15:14 | Outpatient (AMB) | payer OTHER, SELFPAY ==
--- NOTE | 2024-10-01 15:17 | A.OFFPC_ITS ---
Vital Signs 10/01/24 15:18 Height 6 ft 4 in Weight 304 lb BMI 37.0 BP 114/82 Blood Pressure Location Lt brachial Position Sitting Pulse 93 Pulse Source Pulse Oximeter Pulse Oximetry (%) 96 Oxygen Delivery Method Room Air Intake Visit Reasons: dizziness 3 month follow up Dye Colorist Dyer Required: No Accompanied by: Spouse Allergies No Known Drug Allergies Allergy (Unknown, Verified 10/01/24 15:21) NONE Tobacco use date assessed: 07/19/24 Dental Screening Dental Screen Date: 06/22/24 Did you have a dental visit in the last 12 months?: Yes Did you have a dental problem in the last 6 months where you did not have access to dental care?: No Was dental information given to patient?: Patient has dentist HPI dizziness 3 month follow up HPI Details wheezing, 3 months coughing, dry cough, , no sore throat, , congested, , has a pet at home, , no ear problem, has received steroids and inhaler PFSH Medical History Cough Acute respiratory disease Left breast mass Acne Hypercholesterolemia GERD (gastroesophageal reflux disease) Vitamin D deficiency Obesity (BMI 30-39.9) Surgical History History of placement of ear tubes Hx of tonsillectomy History of cholecystectomy Family History (Updated 10/01/24 @ 15:18 by KORI Kumar) Mother Myocardial infarct CVA (cerebral vascular accident) Maternal Aunt Myocardial infarct Paternal Aunt Brain cancer Paternal Uncle Throat cancer Prostate carcinoma Social History Housing: House Alcohol intake: never Patient Tobacco Use Status: Never used Tobacco e-Cigarette/Vaping Use: Never Used Second Hand Smoke Exposure: No service: No Current occupational status: employed Current occupational exposures/hazards: No Cognitive needs: No Hearing needs: No Vision needs: No Questionnaire PHQ-9 Over the last 2 weeks, how often have you been bothered by any of the following problems? 1. Little interest or pleasure in doing things: not at all 2. Feeling down, depressed, or hopeless: not at all 3. Trouble falling or staying asleep, or sleeping too much: not at all 4. Feeling tired or having little energy: several days 5. Poor appetite or overeating: several days 6. Feeling bad about yourself - or that you are a failure or have let yourself or your family down: not at all 7. Trouble concentrating on things, such as reading the newspaper or watching television: not at all 8. Moving or speaking so slowly that other people could have noticed. Or the opposite - being so fidgety or restless that you have been moving around a lot more than usual: not at all 9. Thoughts that you would be better off or of hurting yourself in some way: not at all Total score: 2 Source: Developed by Drs. Santosh Ortiz, Codie Schulz, Paramjit Acuña and colleagues, with an educational victor m from [employer]. Thrive Questionnaire Date Thrive assessed: 06/22/24 I am a: Patient What is your living situation today?: I have a steady place to live Within the past 12 months, did the food you bought not last and you didn't have the money to get more?: Never true Within the past 12 months, did you worry whether your food would run out before you got money to buy more?: Never true Do you have trouble paying for medicines?: No Do you have trouble getting transportation to medical appointments?: No Do you have trouble paying your heating and electricity bill?: No Do you have trouble taking care of your child, family member or friend?: No Do you have trouble with day-to-day activities such as bathing, preparing meals, shopping, managing finances, etc.?: No Are you currently unemployed and looking for a job?: No Are you interested in more education?: No Please select the resources that you would like help with: None Currently or been in a relationship where the following occur: I choose not to answer THRIVE Score: 0 AUDIT C Alcohol Use Questionnaire (AUDIT-C) 1. How often do you have a drink containing alcohol?: Never Total Score: 0 KIMMY-7 AMB Questionnaire KIMMY-7 Date KIMMY - 7 assessed: 10/01/24 Feeling nervous, anxious, or on edge: 0 = Not at all Not being able to stop or control worryin = Not at all Worrying too much about different things: 0 = Not at all Trouble relaxin = Not at all Being so restless that it is hard to sit still: 0 = Not at all Becoming easily annoyed or irritable: 0 = Not at all Feeling afraid as if something awful might happen: 0 = Not at all Total KIMMY-7 score (0-4 normal; 5-9 mild; 10-14 moderate; 15-21 severe): 0 Source: Developed by Drs. Santosh Ortiz, Codie Schulz, Paramjit Acuña and colleagues, with an educational victor m from [employer]. Physical exam (Primary Care) Vital Signs: Last Vital Signs Pulse 93 10/01/24 15:18 BP 114/82 10/01/24 15:18 Pulse Ox 96 10/01/24 15:18 Oxygen Delivery Method Room Air 10/01/24 15:18 BMI result Body Mass Index 37.0 Tobacco/Smoking Status: Tobacco use Status Tobacco use date assessed 07/19/24 10/01/24 15:25 Patient Tobacco Use Status Never used Tobacco 10/01/24 15:25 e-Cigarette/Vaping Use Never Used 10/01/24 15:25 PHQ-9: PHQ-9 Score PHQ-9: Total score 2 10/01/24 15:25 Thrive Assessment: Date of Thrive Assessment Date Thrive assessed 06/22/24 10/01/24 15:25 Currently or been in a relationship where the following occur: I choose not to answer Const General: alert; No acute distress Eyes Conjunctivae: conjunctivae normal Resp Auscultation: clear to auscultation bilaterally Cardio Rate: regular rate Rhythm: regular rhythm GI Inspection: Yes normal to inspection Extrem General: Yes normal to inspection and No edema Coding Level of Care Code Est Pt Level 4 (54197) Complex EM visit Add On G2211 Diagnoses Abnormal TSH R79.89 High serum ferritin R79.89 Hepatic steatosis K76.0 Obesity (BMI 30-39.9) E66.9 Impaired fasting blood sugar R73.01 Acute cough R05.1 Cough type: acute Assessment & Plan Assessment & Plan (1) Abnormal TSH: Code(s): R79.89 - Other specified abnormal findings of blood chemistry Category: Medical (2) High serum ferritin: Code(s): R79.89 - Other specified abnormal findings of blood chemistry Category: Medical (3) Hepatic steatosis: Code(s): K76.0 - Fatty (change of) liver, not elsewhere classified Category: Medical Plan: low fat diet and exercise (4) Obesity (BMI 30-39.9): Code(s): E66.9 - Obesity, unspecified Category: Medical Plan: diet and exercise (5) Impaired fasting blood sugar: Code(s): R73.01 - Impaired fasting glucose Category: Medical (6) Cough: Code(s): R05.9 - Cough, unspecified Category: Medical Qualifiers: Cough type: acute Qualified Code(s): R05.1 - Acute cough Plan: Patient is advised to take the allergy medication regularly. Will request for pulmonary function test. Plan History of Present Illness The patient is a 49-year-old male presenting with a follow-up visit for chronic conditions, including obesity, GERD, hypercholesterolemia, and hepatic steatosis, as well as ongoing respiratory symptoms since June. These respiratory symptoms include a persistent dry cough, more pronounced at night, with episodes of wheezing. The patient denies experiencing a sore throat or ear issues, and inhaler usage provides partial relief. He has visited urgent care multiple times, receiving antibiotics, steroids, and an inhaler. Blood tests in early July revealed elevated blood sugar at 117, mild thrombocytosis, and significantly elevated ferritin levels. Liver function tests indicated hepatic steatosis, prompting an ultrasound confirmation. Additionally, thyroid tests showed below-normal levels, indicating potential hypothyroidism. The patient has a history of iron supplementation while managing GERD, and has made dietary changes leading to weight loss. Health Maintenance - Emphasized importance of regular exercise to manage weight and reduce blood sugar levels. - Advised dietary modifications to reduce sugar and cholesterol intake. - Discussed the need for regular thyroid function monitoring. - Recommended routine liver function tests to monitor hepatic steatosis. - Reviewed need for controlling allergic symptoms with regular allergy medication. - Scheduled repeat iron studies to evaluate for possible iron overload. Social History - Reports adherence to an exercise regimen which had been disrupted due to the pandemic. - Regular dietary intake includes significant portions of carbohydrates like pasta, bread, and potatoes. - The patient has a pet dog at home which may contribute to ongoing allergic symptoms. - Previously consumed iron supplements, which were reported to have exacerbated GERD symptoms. - Positive family dynamics, although specific details about family planning or employment were not discussed. Review of Systems - Respiratory: Reports dry cough and wheezing, especially at night; denies sore throat. - Cardiovascular: Denies chest pain or palpitations. - Gastrointestinal: Reports GERD symptoms. - Endocrine: Unable to comment on systemic symptoms due to thyroid issues. - allergic/Immunologic: Reports congestion, with seasonal allergies. - General: Reports weight loss since the last visit. - Hematological: Reports prior iron supplementation; previously noted anemia. - Musculoskeletal: Denies recent ankle swelling or joint pain, current sciatica pain noted as mild. Physical Exam - Respiratory- Lungs clear to auscultation, no wheezing noted during exam. - Vitals- Not explicitly mentioned. Results - Labs: Blood work showed mild thrombocytosis and elevated ferritin level of 1,222, elevated blood sugar at 117. - Tests: Liver ultrasound indicating hepatic steatosis. Plan I focused on managing the patient's persistent respiratory symptoms linked potentially to allergies and asthma, outlining a plan that includes continued use of inhalers and daily allergy medications to prevent symptom exacerbation. I also emphasized dietary modifications and regular exercise to reduce blood sugar and cholesterol levels, supporting weight management. Blood work to reassess thyroid and iron levels was planned, alongside a pulmonary function test to explore possible asthma. The monitoring strategy comprises sustaining vigilance on blood glucose and cholesterol levels, exploring the necessity for byproducts extractor consultation, and ongoing GERD treatments, with regular liver function evaluation critical for surveillance of hepatic steatosis. This comprehensive plan aligns with his recent lifestyle adjustments and health maintenance efforts. Patient was informed and verbally consented to the use of an ambient scribe for clinic note documentation during this visit. Discussion Notes I reviewed with the patient his likely conditions, which include allergic rhinitis contributing to persistent respiratory symptoms and the possibility of asthma, considering symptom timing. Management options discussed included the benefits and potential side effects of continued inhaler usage and antihistamines. We emphasized the significance of lifestyle alterations, namely dietary changes to reduce carbohydrate and sugar intake, aimed at controlling elevated blood sugar and cholesterol. I advised repeat thyroid testing and iron studies for further clarification on hypothyroidism and iron overload. I highlighted the necessity of ongoing liver function monitoring due to hepatic steatosis and future risks. I also consented on conducting pulmonary function tests for additional insight into his respiratory symptoms. Emphasized continuing regular use of allergy medication to prevent allergen-triggered reactions. Patient education accurate regarding the importance of measuring blood sugar and cholesterol levels. Patient Instructions - Continue using inhalers as prescribed to manage respiratory symptoms. - Take your allergy medication daily to help prevent wheezing and congestion. - Keep up with your revised diet and try to cut down on sugar and carbohydrates. - Get regular exercise to help manage weight and blood sugar levels. - Schedule a follow-up blood test to check thyroid and iron levels. - Avoid taking any iron supplements before the blood test. - Plan to come in for the pulmonary function test as instructed. - Monitor your symptoms and return for an evaluation if they worsen. - Use the patient portal to message for any additional assistance. Orders: Orders IRON PROFILE Today R79.89 - Other specified abnormal findings of blood chemistry Hemoglobin A1c Today R79.89 - Other specified abnormal findings of blood chemistry Thyroid Stimulating Hormone Today R79.89 - Other specified abnormal findings of blood chemistry Ferritin Today R79.89 - Other specified abnormal findings of blood chemistry Reticulocyte Count Today R79.89 - Other specified abnormal findings of blood chemistry Vitamin B12 and Folate Today R79.89 - Other specified abnormal findings of blood chemistry Complete Blood Count Auto Diff Today R79.89 - Other specified abnormal findings of blood chemistry Comprehensive Met. Panel Today R79.89 - Other specified abnormal findings of blood chemistry Free T4 (Free Thyroxine) Today R79.89 - Other specified abnormal findings of blood chemistry PFT pulmonary function test Today R05.1 - Acute cough
[2024-10-01 15:18] VITALS: BP 114/82; PULSE 93; O2SAT 96; BMI 37.0
== END 2024-10-01 16:12 | disposition home or self-care (01) ==
LOC: HO.HMCH 15:15
PROVIDERS: PCP Internal Medicine; Visit Provider Internal Medicine
DX: R79.89 Other specified abnormal findings of blood chemistry (principal); K76.0 Fatty (change of) liver, not elsewhere classified; Z68.37 Body mass index [BMI] 37.0-37.9, adult; E66.9 Obesity, unspecified; R73.01 Impaired fasting glucose; R05.1 Acute cough

== ENCOUNTER → 2024-10-01 15:14 | Outpatient (BNVA) | payer OTHER, SELFPAY | PROVIDERS: PCP Internal Medicine; Visit Provider Internal Medicine ==

== ENCOUNTER → 2024-10-08 07:37 | Day surgery (SDC) | payer OTHER, SELFPAY ==
[2024-10-04 08:12] VITALS: BMI 37.0
--- NOTE | 2024-10-05 10:08 | HO.ANESPROP2 ---
HPI - Anesthesia Eval Consult details Narrative: 49yo M for Excision Lipoma on LEFT breast,LEFT chest,LEFT shoulder,LEFT lower back PMFSH Active Problems Active Problems: All Active Problems Impaired fasting blood sugar (Acute) Hepatic steatosis (Acute) High serum ferritin (Acute) Lipoma (Acute) Abnormal TSH (Acute) Cough (Acute) Acute respiratory disease (Acute) Epidermal cyst (Acute) LFT elevation (Acute) Hypersomnia (Acute) Gynecomastia (Acute) Colon cancer screening (Acute) Anemia (Acute) Upper respiratory tract infection (Acute) Dizziness (Acute) Annual physical exam (Acute) COVID-19 virus infection (Acute) Hypercholesterolemia (Acute) GERD (gastroesophageal reflux disease) (Acute) Obesity (BMI 30-39.9) (Acute) Bile salt-induced diarrhea (Acute) Past Medical History Medical History Cough Acute respiratory disease Left breast mass Acne Hypercholesterolemia GERD (gastroesophageal reflux disease) Vitamin D deficiency Obesity (BMI 30-39.9) Family History Family History (Updated 10/01/24 @ 15:18 by KORI Kumar) Mother Myocardial infarct CVA (cerebral vascular accident) Maternal Aunt Myocardial infarct Paternal Aunt Brain cancer Paternal Uncle Throat cancer Prostate carcinoma Surgical History Surgical History History of placement of ear tubes Hx of tonsillectomy History of cholecystectomy Social History Social History Housing: House Alcohol intake: never Patient Tobacco Use Status: Never used Tobacco e-Cigarette/Vaping Use: Never Used Second Hand Smoke Exposure: No service: No Current occupational status: employed Current occupational exposures/hazards: No Cognitive needs: No Hearing needs: No Vision needs: No Meds Allergies Allergy/AdvReac Type Severity Reaction Status Date / Time No Known Drug Allergies Allergy Unknown NONE Verified 10/01/24 15:21 Home Medications ?Medication ?Instructions ?Recorded ?Confirmed ?Last Taken ?Type ascorbate calcium (vitamin C) 500 500 mg PO DAILY 06/22/24 09/25/24 Unknown History mg tablet Exam Height,Weight and Vital Signs: Height 6 ft 4 in Weight 137.892 kg Pertinent Lab Results Pertinent Lab Results: Laboratory Tests 07/20/24 09:22 WBC 10.7 Hgb 14.2 Hct 44.3 Plt Count 416 H Sodium 138 Potassium 4.3 Chloride 108 Carbon Dioxide 25 BUN 8 L Creatinine 0.65 Assessment and Plan Assessment Anesthesia Assessment: Chart Reviewed
[2024-10-08 08:01] VITALS: BP 130/83; PULSE 91; TEMP 36.6; O2SAT 97; BMI 37.0
[2024-10-08] MEDS: Lactated Ringers 1,000 ML 100 ML IVCONT (08:32)
--- NOTE | 2024-10-08 08:53 | MHC.SHP ---
Pre-Procedural Eval Section A - 24 Hr Update-Section A only Date of Service: 10/08/24 The patient is an INPATIENT: No Changes since office visit: Yes Patient answered all questions; No Cold of Flu in the past 2 weeks, No New Medical Problems and No Changes in Medication The patient has been examined within 24 hours of the surgical procedure. The History & Physical has been completed within 30 days and I have reviewed it.: Yes Section B - Complete if H&P > 30 days Chief Complaint: Benign lipomatous neoplasm of skin Allergies: Allergies Allergy/AdvReac Type Severity Reaction Status Date / Time No Known Drug Allergies Allergy Unknown NONE Verified 10/01/24 15:21 Plan Diagnosis/Plan: Unchanged I have reviewed the history and physical and performed a pertinent physical examination on my patient. No changes have occurred unless specified. Time Spent With Patient Time: Total time managing care of this patient today ____ minutes.
--- NOTE | 2024-10-08 09:08 | PC.NURSE ---
Pt was interviewed by anesthesia who determined pt is on the end of an URI and would be best off postponing his procedure.
== END | disposition home or self-care (01) ==
PROVIDERS: PCP Internal Medicine; Visit Provider Surgery
DX: D17.1 Benign lipomatous neoplasm of skin and subcutaneous tissue of trunk (principal); Z53.8 Procedure and treatment not carried out for other reasons; R09.3 Abnormal sputum; R68.89 Other general symptoms and signs
CPT/HCPCS: J0690; J2003; J2250; J2704; J3010

== ENCOUNTER 2024-11-09 08:57 | Outpatient (REF) | payer OTHER, SELFPAY ==
--- NOTE | 2024-11-09 09:00 | PFT_ITS ---
Indication cough Spirometry [FEV1 to FVC 81%; FEV1 4.12 L; FVC 5.11 L. No significant response to bronchodilators noted.] Lung Volumes [Total lung capacity 87% predicted] Diffusion Capacity [Diffusing capacity 101% predicted] Comparisons [none] Interpretation [No obstructive nor restrictive ventilatory defects identified. No significant response to bronchodilators noted. Flow volume loop appears to be completely normal. Lung volumes and diffusing capacity also within normal limits. Does have a slight decrease in the expiratory reserve volume secondary to an elevated BMI. Clinical correlation warranted.] MTDD
--- OUTSIDE RECORDS SUMMARY | 2024-11-09 09:02 | XMS_ITS ---
Author Organization [facility] Address [address] [place] [address] Care Team Providers Care Safety Sealer Name Role Phone Tavares Ty MD Primary [...] 10/25/2024 Encounters Encounter Location Date Provider Diagnosis [facility] [address] [place] [address] 10/25/2024 Stephen Leigh Jr Abnormal findings in stool R19.5 Assessments Encounter Date Diagnosis (ICD Code) Assessment Notes Treatment Notes Treatment Clinical Notes Section Notes 10/25/2024 Abnormal findings in stool (ICD-10 - R19.5) Plan Of Treatment Future Test Test Name Order Date COLONOSCOPY 10/25/2024 Next Appt Details Provider Name:Stephen santiago Jr, 11/16/2024 12:30:00 PM, [address] [place] [address] , [place], [place], [phone], Progress Notes * JOSE ALEJANDRO ANDERSON SrDOB: (49 yo M)Acc No.[id number]:10/25/2024 Progress Notes Patient:?JOSE ALEJANDRO ANDERSON Sr Provider:?Stephen Leigh MD :1975???Age:49 Y???Sex:Male Eugene e:10/25/2024 Address:[address] [place] [address] Pcp:Tavares Ty MD Subjective: * Chief Complaints: [...] MD Date:?0 10/25/2024 Generated for Lisa pineda/Lennox/Emre on:?11/09/2024 09:02 AM EDT
[2024-11-09 09:41] VITALS: PULSE 87; O2SAT 99
== END 2024-11-09 08:58 | disposition home or self-care (01) ==
LOC: HO.RESP 08:57
PROVIDERS: PCP Internal Medicine; Visit Provider Internal Medicine
DX: R05.1 Acute cough (principal)
CPT/HCPCS: 94010; 94640; 94727; 94729

== ENCOUNTER → 2024-11-09 09:00 | Outpatient (BNV) | payer OTHER, SELFPAY | PROVIDERS: PCP Internal Medicine; Visit Provider Hospitalist | DX: R05.9 Cough, unspecified (principal) | CPT/HCPCS: 94060; 94727; 94729 ==

== ENCOUNTER 2024-11-16 09:38 | Day surgery (SDC) | payer OTHER, SELFPAY ==
--- OUTSIDE RECORDS SUMMARY | 2024-10-30 15:21 | XMS_ITS | Patient Health Record ---
Author Organization [facility] Address [address] [place] [phone] Care Team Providers Care Certified Phlebotomist Name Role Phone Tavares Ty MD Primary Care Provider Stephen Hale Jr Allergies No Known Allergies Reason For Referral No Information Medications Medication SIG (Take, Route, Frequency, Duration) Notes Start Date End Date Status Prevalite 4 GM 1 packet Orally Twice a day Active Omeprazole 20 MG 1 capsule Orally Once a day Not-Taking Vitamin C 500 MG as directed Orally Active ZyrTEC Allergy 10 MG 1 tablet Orally Once a day Active Social History Tobacco Use: Social History Observation Description Date Details (start date - stop date) Never Smoker NA - NA Tobacco Use/Smoking Question Answer Notes Patient is a nonsmoker Alcohol Screen Question Answer Notes Did you have a drink containing alcohol in the p ast year? No Points 0 Interpretation Negative Problems Problem Type SNOMED Code ICD Code Onset Dates Problem Status W/U Status Risk Notes Problem [id number] Abnormal upper gastrointestinal barium series (R93.3) Active confirmed Problem 869600608 Elevated LFTs (R94.5) Active confirmed Vital Signs Blood pressure diastolic 77 mm Hg 10/25/2024 Height 76 in 10/25/2024 Blood pressure systolic 111 mm Hg 10/25/2024 Weight 308 lbs 10/25/2024 BMI 37.49 kg/m2 10/25/2024 Encounters Encounter Location Date Provider Diagnosis [facility] [address] [place] [phone] 10/25/2024 Stephen Leigh Jr Abnormal findings in stool R19.5 Assessments Encounter Date Diagnosis (ICD Code) Assessment Notes Treatment Notes Treatment Clinical Notes Section Notes 10/25/2024 Abnormal findings in stool (ICD-10 - R19.5) Plan Of Treatment Pending Test Test Name Order Date HEPATITIS A,B,C PROFILE 02/15/2018 Future Test Test Name Order Date UPPER GI ENDOSCOPY 02/15/2018 COLONOSCOPY 10/25/2024 Next Appt Details Provider Name:Stephen Kika santiago Jr, 11/16/2024 12:30:00 PM, [address] [place] [address] , [place], [place], [phone], Insurance Providers Payer Name Payer Address Payer Phone Subscriber Number Group Number Insured Name Patient Relationship to Insured Coverage Start Date Coverage End Date [facility] [address] [place] [phone] [id number] JOSE ALEJANDRO CLAIRE Self - patient is the insured Medical (General) History Medical History History ICD Code disc disease acne diarrhea Surgical History Surgery Date(Month/Year) cholecystectomy nose tonsillectomy tubes in ears
--- OUTSIDE RECORDS SUMMARY | 2024-10-30 15:21 | XMS_ITS ---
Author Organization [facility] Address [address] [place] [address] Care Team Providers Care Party Plan Sales Unit Sales Leader Name Role Phone Tavares Ty MD Primary Care Provider Austen Leigh Jr, Stephen Vides Allergies No Known Allergies REASON FOR VISIT patient presents today for other fecal abnormalities Medications Medication SIG (Take, Route, Frequency, Duration) Notes Start Date End Date Status Vitamin C 500 MG as directed Orally Active ZyrTEC Allergy 10 MG 1 tablet Orally Once a day Active Prevalite 4 GM 1 packet Orally Twice a day Active Omeprazole 20 MG 1 capsule Orally Once a day Not-Taking Social History Tobacco Use: Social History Observation Description Date Details (start date - stop date) Never Smoker NA - NA Tobacco Use/Smoking Question Answer Notes Patient is a nonsmoker Alcohol Screen Question Answer Notes Did you have a drink containing alcohol in the p ast year? No Points 0 Interpretation Negative Vital Signs Blood pressure systolic 111 mm Hg 10/26/19 25 Blood pressure diastolic 77 mm Hg 025 Height 76 in 10/25/2024 Weight 308 lbs 10/25/2024 BMI 37.49 kg/m2 10/25/2024 Encounters Encounter Location Date Provider Diagnosis [facility] [address] [place] [phone] 10/25/2024 Stephen Leigh Jr Abnormal findings in stool R19.5 Assessments Encounter Date Diagnosis (ICD Code) Assessment Notes Treatment Notes Treatment Clinical Notes Section Notes 10/25/2024 Abnormal findings in stool (ICD-10 - R19.5) Plan Of Treatment Future Test Test Name Order Date COLONOSCOPY 10/25/2024 Next Appt Details Provider Name:Stephen santiago Jr, 11/16/2024 12:30:00 PM, [address] [place] [address] , [place], [place], [phone], Progress Notes * JOSE ALEJANDRO ANDERSON SrDOB: (49 yo M)Acc No.[id number]:10/25/2024 Progress Notes Patient:?JOSE ALEJANDRO ANDERSON Sr Provider:?Stephen Leigh MD :1975???Age:49 Y???Sex:Male Eugene e:10/25/2024 Address:[address] [place] [address] Pcp:Tavares Ty MD Subjective: * Chief Complaints: * ???1. Patient presents today for other fecal abnormalities. * Medical History:?Disc diseas e, Acne, Diarrhea. * Surgical History:?tubes in e ars , tonsillectomy , nose , cholecystectomy . * Family History:?Father: liborio rios.?Mother: , diagnosed with Heart disease.?Paternal uncle: , dx in late 50's, diagnosed with Colon cancer.? * Social History:?Tobacco Use:?Tobacco Use/Smoking?Patient is a?nonsmoker.?Drugs/Alcohol:?Alcohol Screen?Did you have a drink containing alcohol in the past year??No,?Points?0,?Interpretation?Negative.?Miscellaneous:?Marital status: . Occupation: banker. * Medications:?Taking ZyrTEC A llergy 10 MG Tablet 1 tablet Orally Once a day , Taking Vitamin C 500 MG Capsule as directed Orally , Taking Prevalite 4 GM Packet 1 packet Orally Twice a day , Not-Taking/PRN Omeprazole 20 MG Capsule Delayed Release 1 capsule Orally Once a day , Discontinued Sucralfate 1 GM Tablet 1 tablet at bedtime on an empty stomach before meals Orally , Discontinued Doxycycline Hyclate 100 MG Capsule 1 capsule Orally Once a day , Discontinued Omeprazole 40 MG Capsule Delayed Release 1 capsule Orally Once a day , Medication List reviewed and reconciled with the patient * Allergies:?N.K.D.A. Objective: * Vitals:?Wt:308lbs, Ht: 76 in , BMI:37.49Index, BP:111/77mm Hg, Wt-k.71. Assessment: * Assessment: 1.?Abnormal findings in stoo l - R19.5 (Primary)??? Plan: * Treatment: * Preventive Medicine:? ??Counseling:?Care goal follow-up plan:?Above Normal BMI Follow-up?Giving encouragement to exercise,?BMI management provided?Yes.? * * The named appointment provid er may or may not be the originator of this progress note, and it is not deemed complete until electronically signed by the appointment provider. Sign off status: Pending * Provider:?Stephen Leigh MD Date:?0 10/25/2024 Generated for Lisa pineda/Lennox/Emre on:?10/30/2024 03:21 PM EDT
[2024-11-14 16:34] VITALS: BMI 37.0
--- NOTE | 2024-11-15 11:02 | HO.ANESPROP2 ---
Documented by User: Herlinda Riddle NP 11/15/24 11:03 HPI - Anesthesia Eval Consult details Narrative: 49yo M for Colonoscopy PMFSH Active Problems Active Problems: All Active Problems Positive colorectal cancer screening using Cologuard test (Acute) Impaired fasting blood sugar (Acute) Hepatic steatosis (Acute) High serum ferritin (Acute) Lipoma (Acute) Abnormal TSH (Acute) Epidermal cyst (Acute) LFT elevation (Acute) Hypersomnia (Acute) Gynecomastia (Acute) Colon cancer screening (Acute) Anemia (Acute) Upper respiratory tract infection (Acute) Dizziness (Acute) Annual physical exam (Acute) COVID-19 virus infection (Acute) Bile salt-induced diarrhea (Acute) Cough (Acute) Acute respiratory disease (Acute) Hypercholesterolemia (Acute) GERD (gastroesophageal reflux disease) (Acute) Obesity (BMI 30-39.9) (Acute) Past Medical History Medical History (Updated 10/10/24 @ 17:17 by Tavares Ty MD) Cough Acute respiratory disease Left breast mass Acne Hypercholesterolemia GERD (gastroesophageal reflux disease) Vitamin D deficiency Obesity (BMI 30-39.9) Family History Family History (Updated 10/01/24 @ 15:18 by KORI Kumar) Mother Myocardial infarct CVA (cerebral vascular accident) Maternal Aunt Myocardial infarct Paternal Aunt Brain cancer Paternal Uncle Throat cancer Prostate carcinoma Surgical History Surgical History (Updated 11/14/24 @ 16:33 by Gracia Esquivel RN) History of esophagogastroduodenoscopy (EGD) (~2018) History of placement of ear tubes Hx of tonsillectomy History of cholecystectomy Social History Social History Housing: House Alcohol intake: never Patient Tobacco Use Status: Never used Tobacco e-Cigarette/Vaping Use: Never Used Second Hand Smoke Exposure: No Advance Directives: No Advance Directives Information Provided: Yes service: No Current occupational status: employed Current occupational exposures/hazards: No Cognitive needs: No Hearing needs: No Vision needs: No Meds Allergies Allergy/AdvReac Type Severity Reaction Status Date / Time No Known Drug Allergies Allergy Unknown NONE Verified 10/01/24 15:21 Home Medications ?Medication ?Instructions ?Recorded ?Confirmed ?Last Taken ?Type ascorbate calcium (vitamin C) 500 500 mg PO DAILY 06/22/24 11/14/24 Unknown History mg tablet cetirizine 10 mg tablet (Zyrtec) 10 mg PO DAILY 11/14/24 11/14/24 Unknown History Exam Height,Weight and Vital Signs: Height 6 ft 4 in Weight 137.892 kg Assessment and Plan Assessment Anesthesia Assessment: Chart Reviewed Documented by User: Gurjit Mcleod MD 11/16/24 10:20 [facility] Past Medical History Medical History (Updated 10/10/24 @ 17:17 by Tavares Ty MD) Cough Acute respiratory disease Left breast mass Acne Hypercholesterolemia GERD (gastroesophageal reflux disease) Vitamin D deficiency Obesity (BMI 30-39.9) Family History Family History (Updated 10/01/24 @ 15:18 by KORI Kumar) Mother Myocardial infarct CVA (cerebral vascular accident) Maternal Aunt Myocardial infarct Paternal Aunt Brain cancer Paternal Uncle Throat cancer Prostate carcinoma Family history of problems with anesthesia: No Surgical History Surgical History (Updated 11/14/24 @ 16:33 by Gracia Esquivel RN) History of esophagogastroduodenoscopy (EGD) (~2018) History of placement of ear tubes Hx of tonsillectomy History of cholecystectomy History of Problems with Anesthesia: No Social History Social History Housing: House Alcohol intake: never Patient Tobacco Use Status: Never used Tobacco e-Cigarette/Vaping Use: Never Used Second Hand Smoke Exposure: No Advance Directives: No Advance Directives Information Provided: Yes service: No Current occupational status: employed Current occupational exposures/hazards: No Cognitive needs: No Hearing needs: No Vision needs: No Meds Allergies Allergy/AdvReac Type Severity Reaction Status Date / Time No Known Drug Allergies Allergy Unknown NONE Verified 10/01/24 15:21 Home Medications ?Medication ?Instructions ?Recorded ?Confirmed ?Last Taken ?Type ascorbate calcium (vitamin C) 500 500 mg PO DAILY 01/10/25 06/04/25 Unknown History mg tablet cetirizine 10 mg tablet (Zyrtec) 10 mg PO DAILY 11/14/24 11/14/24 Unknown History Exam Airway Mallampati Class: II TM Dist: <=3cm Neck ROM: Full Loose/Missing/Broken Teeth: No Heart: ok Lungs: ok Assessment and Plan Assessment Anesthesia Assessment: Anesthesia Plan Discussed Final Anesthetic Review Family History of Problems with Anesthesia: No History of Problems with Anesthesia: No NPO: Yes ASA Class: II Final Preanesthetic Review: No Changes in Pt Med Stat, Meds/Allgs Chart Reviewed, Consent Obtained/Reviewed and Anes Risks/Benef Reviewed Patient Risk: Intermediate Procedure Risk: Low Anesthetic Plan Anesthetic Plan: MAC: and Agree w/ Assess. and Plan Disposition: Standard PACU
--- NOTE | 2024-11-16 07:33 | MHC.SHP ---
Pre-Procedural Eval Section A - 24 Hr Update-Section A only Date of Service: 11/16/24 The patient is an INPATIENT: No Changes since office visit: No Cold of Flu in the past 2 weeks, No New Medical Problems, No Changes in Medication and No Patient answered all questions The patient has been examined within 24 hours of the surgical procedure. The History & Physical has been completed within 30 days and I have reviewed it.: Yes Section B - Complete if H&P > 30 days Chief Complaint: Other fecal abnormalities Allergies: Allergies Allergy/AdvReac Type Severity Reaction Status Date / Time No Known Drug Allergies Allergy Unknown NONE Verified 10/01/24 15:21 Plan I have reviewed the history and physical and performed a pertinent physical examination on my patient. No changes have occurred unless specified. Time Spent With Patient Time: Total time managing care of this patient today ____ minutes.
[2024-11-16 09:52] VITALS: BP 122/81; PULSE 100; RESP 18; TEMP 36.4; O2SAT 97; BMI 36.2
[2024-11-16] MEDS: Lactated Ringers 1,000 ML 100 ML IVCONT (10:13)
[2024-11-16 11:13] VITALS: BP 110/70; PULSE 83; RESP 22; TEMP 36.1; O2SAT 95
--- NOTE | 2024-11-16 11:13 | P.BOP_ITS ---
Brief Operative Note Date of Service: 11/16/24 Pre-op diagnosis: abnormal stool testing Post-op diagnosis: same Procedure: colonoscopy Surgeon: Stephen Leigh MD Was an Business Support Assistant used for this Procedure?: No Estimated blood loss (mL): 5 Pathology: other Condition: stable
[2024-11-16 11:28] VITALS: BP 105/78; PULSE 84; RESP 18; TEMP 36.1; O2SAT 100
--- NOTE | 2024-11-16 11:34 | OP_ITS ---
DATE OF SERVICE: 11/16/2024 SURGEON: Stephen Leigh MD INDICATIONS: Abnormal findings in stool. PREOPERATIVE DIAGNOSIS: POSTOPERATIVE DIAGNOSIS: PROCEDURE PERFORMED: Colonoscopy to the terminal ileum with snare polypectomy. ESTIMATED BLOOD LOSS: COMPLICATIONS: ANESTHESIA: Monitored anesthesia care. ASSISTANTS: SPECIMENS: DESCRIPTION OF PROCEDURE: History and physical performed. The risks and benefits of the procedure were explained to the patient, and informed consent was obtained. The patient was placed in the left lateral decubitus position. A digital rectal exam was performed and was found to be normal. The Olympus pediatric video colonoscope was introduced into the rectum and advanced to the cecum. The cecum was identified by transillumination, palpation, and identification of ileocecal valve. Examination was performed. The scope was removed. He tolerated the procedure well and was taken to recovery area in stable condition. FINDINGS: The terminal ileum was examined and appeared normal. Total of 3 polyps were identified, 2 in the right colon and at 60 cm, were removed with a cold snare, both measuring less than 10 mm. A 10 mm polyp at 20 cm was removed with a hot snare and recovered via suction. There was a 15 mm lipoma in the hepatic flexure. No biopsies were obtained. The quality of the prep was good. Retroflexed examination showed some small internal hemorrhoids. IMPRESSION: Colon polyps. RECOMMENDATION: Followup the biopsy results. MD CHAITANYA Ramos/WADE / [phone]
== END 2024-11-16 12:03 | disposition home or self-care (01) ==
PROVIDERS: PCP Internal Medicine; Visit Provider Internal Medicine Gastroenterology
PROC: 0DJD8ZZ Inspection of Lower Intestinal Tract, Via Natural or Artificial Opening Endoscopic (ICD-10-PCS; CPT 45378; principal; 2024-11-16 11:00)
DX: R19.5 Other fecal abnormalities (principal); D12.2 Benign neoplasm of ascending colon; D12.4 Benign neoplasm of descending colon; D12.5 Benign neoplasm of sigmoid colon; K64.8 Other hemorrhoids; R19.7 Diarrhea, unspecified; K21.9 Gastro-esophageal reflux disease without esophagitis; E78.00 Pure hypercholesterolemia, unspecified; E55.9 Vitamin D deficiency, unspecified; M51.9 Unspecified thoracic, thoracolumbar and lumbosacral intervertebral disc disorder; Z79.899 Other long term (current) drug therapy; Z90.49 Acquired absence of other specified parts of digestive tract; Z98.890 Other specified postprocedural states
CPT/HCPCS: 45385; 88305; J2003; J2704; J3010

== ENCOUNTER 2025-01-30 08:53 | Outpatient (REF) | payer OTHER, SELFPAY ==
[2025-01-30 09:12] LABS: MANUAL DIFF FLAG NO
[2025-01-30 09:21] LABS: Hematocrit 42.1 % (42.0-52.0); Hemoglobin 14.0 g/dl (14.0-18.0); Imm Gran Abs Auto 0.03 X10*3/uL (0.00-0.03); Imm Gran Pct Auto 0.4 % (0.0-0.4); Lymphocytes Absolute Auto 2.0 X10*3/uL (1.2-4.9); Mean Corpuscular HGB Conc 33.3 g/dl (31.0-36.0); Mean Corpuscular Hemoglobin 26.6 pg (27.0-33.0); Mean Corpuscular Volume 80.0 fL (80.0-98.0); NRBC Abs Auto 0.000 X10*3/uL (0.0-0.012); NRBC Pct Auto 0.0 /100WBC (0.0-0.2); Platelet Count 311 X10*3/uL (160-400); Red Blood Count 5.26 X10*6/uL (4.60-5.80); Reticulocytes Absolute 0.089 X10*6/uL (0.026-0.095); White Blood Count 8.5 X10*3/uL (4.8-10.8)
[2025-01-30 09:28] LABS: Hemoglobin A1C 128.6779 umol/L; Total Hemoglobin (HGBA1C) 3655.3270 umol/L
--- OUTSIDE RECORDS SUMMARY | 2025-01-30 09:36 | XMS_ITS | Patient Health Record ---
Author Organization [facility] Address [address] [place] [address] Care Team Providers Care Replanting Machine Crew Name Role Phone Tavares Ty MD Primary Care Provider Stephen Hale Jr Allergies No Known Allergies Results Component Value Reference Range Notes Pathology Reviewed date:11/22/2024 11:12:48 AM Interpretation: Performing Lab:[facility], [address] [place] [phone] Notes/Report: Reason For Referral No Information Medications Medication [...] Problem Status W/U Status Risk Notes Problem [id number] Abnormal upper gastrointestinal barium series (R93.3) Active confirmed Problem [id number] Elevated LFTs (R94.5) Active confirmed Vital Signs Blood pressure diastolic 77 mm Hg 10/25/2024 Height 76 in 10/25/2024 Blood pressure systolic 111 mm Hg 10/25/2024 Weight 308 lbs 10/25/2024 BMI 37.49 kg/m2 10/25/2024 Encounters Encounter Location Date Provider Diagnosis [facility] [place] [address] [place] [phone] 11/16/2024 Stephen Leigh Jr Abnormal findings in stool R19.5 and Colon polyps K63.5 [facility] [address] [place] [address] 10/25/2024 Stephen Leigh Jr Abnormal findings in stool R19.5 [facility] [address] [place] [address] 11/22/2024 Stephen Leigh Jr Assessments Encounter Date Diagnosis (ICD Code) Assessment Notes Treatment Notes Treatment Clinical Notes Section Notes 11/16/2024 Colon polyps (ICD-10 - K63.5) 11/16/2024 Abnormal findings in stool (ICD-10 - R19.5) 10/25/2024 Abnormal findings in stool (ICD-10 - R19.5) We discussed stool DNA testing today. We discussed the false positive and false negative rate. We discussed findings at time of colonoscopy including a less than 5% chance of having colon cancer. We recommended further evaluation with colonoscopy. We discussed risks and benefits of the procedure today. He understands these and agrees to proceed. This will be scheduled at his convenience. Plan Of Treatment Pending Test Test Name Order Date HEPATITIS A,B,C PROFILE 02/15/2018 Future Test Test Name Order Date UPPER GI ENDOSCOPY 02/15/2018 COLONOSCOPY 10/25/2024 Insurance Providers Payer Name Payer Address Payer Phone Subscriber Number Group Number Insured Name Patient Relationship to Insured Coverage Start Date Coverage End Date [facility] [address] [place] [phone] [id number] JOSE ALEJANDRO CLAIRE Self - patient is the insured Medical (General) History Medical History History ICD Code disc disease acne diarrhea Gastroesophageal reflux dise ase, EGD 04/30, no H. pylori or Mcintosh's esophagus. Surgical History Surgery Date(Month/Year) cholecystectomy Nasal surgery tonsillectomy Tympanostomy tube placement
[2025-01-30 09:51] LABS: Alanine Aminotransferase 40 U/L (0-40); Albumin Level 4.6 g/dL (3.5-5.0); Alkaline Phosphatase 55 U/L (39-117); Anion Gap 13 (12-20); Aspartate Amino Transferase 24 U/L (5-37); Blood Urea Nitrogen 10 mg/dL (9-16); Calcium 9.2 mg/dL (8.4-10.2); Carbon Dioxide 24 mmol/L (22-29); Chloride 109 mmol/L (96-108); Estimated Glomerular Filt Rate > 60; Iron 94 mcg/dL (45-160); Percent Iron Saturation 36 % (15-50); Potassium 3.8 mmol/L (3.3-5.1); Sodium 142 mmol/L (135-145); Total Iron Binding Capacity 259 mcg/dL (228-428); Total Protein 7.3 g/dL (6.5-8.0); Unsaturated Iron Binding 165 ug/dL
[2025-01-30 10:07] LABS: Ferritin 1005 ng/mL (20-250); Free T4 (Free Thyroxine) 1.02 ng/dL (0.71-1.85); Thyroid Stimulating Hormone 0.80 uIU/mL (0.32-4.0)
[2025-01-30 10:19] LABS: Folate 13.3 ng/mL (> or = 4.0); Vitamin B12 703 pg/mL (200-900)
== END 2025-01-30 08:54 | disposition home or self-care (01) ==
LOC: HO.LAB 08:53
PROVIDERS: PCP Internal Medicine; Visit Provider Internal Medicine
DX: R79.89 Other specified abnormal findings of blood chemistry (principal)
CPT/HCPCS: 36415; 80053; 82607; 82728; 82746; 83036; 83540; 84439; 84443; 85025; 85045

== ENCOUNTER 2025-02-04 13:50 | Outpatient (AMB) | payer OTHER, SELFPAY ==
--- OUTSIDE RECORDS SUMMARY | 2024-11-16 07:00 | XMS_ITS ---
Author Organization [facility] Address [address] [place] [address] Care Team Providers Care It Risk And Assurance Manager Name Role Phone Tavares Ty MD Primary Care Provider Stephen Hale Jr REASON FOR VISIT abnormal findings in stool Encounters Encounter Location Date Provider Diagnosis [facility] Out[facility] [address] [place], [place] [phone] 11/16/2024 Stephen Leigh Jr Abnormal findings in stool R19.5 and Colon polyps K63.5 Assessments Encounter Date Diagnosis (ICD Code) Assessment Notes Treatment Notes Treatment Clinical Notes Section Notes 11/16/2024 Abnormal findings in stool (ICD-10 - R19.5) 11/16/2024 Colon polyps (ICD-10 - K63.5) Plan Of Treatment No Information Progress Notes * JOSE ALEJANDRO ANDERSON SrDOB: (50 yo M)Acc No.[id number]:11/16/2024 COLON WITH MAC Patient: Jose Angel RODRIGUEZ JOSE ALEJANDRO [place] Sr Provider: Hernandez Leigh MD :1975 A ge:49 Y S ex:Male Date:11/16/2024 Address:[address] [place], [place] [phone] Pcp:Tavares Ty MD Subjective: * Chief Complaints: [...] 11/16/2024 Generated for Lisa pineda/Lennox/Bushraitting on: 0 02/04/2025 03:10 PM EDT
--- NOTE | 2025-02-04 14:18 | MHC.PC.OV ---
Vital Signs 02/04/25 14:19 Height 6 ft 4 in Weight 299 lb 2 oz BMI 36.4 BP 128/68 Blood Pressure Location Lt brachial Position Sitting Pulse 94 Pulse Source Pulse Oximeter Temp 97.3 F Temp Source Temporal Artery Scan Pulse Oximetry (%) 98 Oxygen Delivery Method Room Air Intake Visit Reasons: 3 Months f/u Intake Note: Patient is here to follow up on Hypercholesterolemia, IFG . Construction Project Coordinator Required: No Ex Assistant/Program Director: Not Required per policy Accompanied by: Self / Same As Patient Allergies No Known Drug Allergies Allergy (Unknown, Verified 02/04/25 14:19) NONE Tobacco use date assessed: 02/04/25 Dental Screening Dental Screen Date: 06/22/24 HPI 3 Months f/u HPI Details chest tightness, dizzy spells PFSH Medical History (Updated 02/04/25 @ 15:01 by Tavares Ty MD) Cough Acute respiratory disease Left breast mass Acne Hypercholesterolemia GERD (gastroesophageal reflux disease) Vitamin D deficiency Obesity (BMI 30-39.9) Surgical History History of esophagogastroduodenoscopy (EGD) (~2018) History of placement of ear tubes Hx of tonsillectomy History of cholecystectomy Family History Mother Myocardial infarct CVA (cerebral vascular accident) Maternal Aunt Myocardial infarct Paternal Aunt Brain cancer Paternal Uncle Throat cancer Prostate carcinoma Social History (Updated 02/04/25 @ 14:38 by KORI Leiva) Housing: House Alcohol intake: never Patient Tobacco Use Status: Never used Tobacco e-Cigarette/Vaping Use: Never Used Second Hand Smoke Exposure: No service: No Current occupational status: employed Current occupational exposures/hazards: No Cognitive needs: No Hearing needs: No Vision needs: No Questionnaire Thrive Questionnaire Date Thrive assessed: 06/22/24 I am a: Patient What is your living situation today?: I have a steady place to live Within the past 12 months, did the food you bought not last and you didn't have the money to get more?: Never true Within the past 12 months, did you worry whether your food would run out before you got money to buy more?: Never true Do you have trouble paying for medicines?: No Do you have trouble getting transportation to medical appointments?: No Do you have trouble paying your heating and electricity bill?: No Do you have trouble taking care of your child, family member or friend?: No Do you have trouble with day-to-day activities such as bathing, preparing meals, shopping, managing finances, etc.?: No Are you currently unemployed and looking for a job?: No Are you interested in more education?: No Please select the resources that you would like help with: None Currently or been in a relationship where the following occur: I choose not to answer THRIVE Score: 0 KIMMY-7 AMB Questionnaire KIMMY-7 Date KIMMY - 7 assessed: 10/01/24 Source: Developed by Drs. Santosh Ortiz, Codie Schulz, Paramjit Acuña and colleagues, with an educational victor m from [employer]. Physical exam (Primary Care) Vital Signs: Last Vital Signs Temp 97.3 F 02/04/25 14:19 Pulse 94 02/04/25 14:19 BP 128/68 02/04/25 14:19 Pulse Ox 98 02/04/25 14:19 Oxygen Delivery Method Room Air 02/04/25 14:19 BMI result Body Mass Index 36.4 Tobacco/Smoking Status: Tobacco use Status Tobacco use date assessed 02/04/25 02/04/25 14:31 Patient Tobacco Use Status Never used Tobacco 02/04/25 14:39 Tobacco use type 02/04/25 14:39 e-Cigarette/Vaping Use Never Used 02/04/25 14:38 Thrive Assessment: Date of Thrive Assessment Date Thrive assessed 06/22/24 02/04/25 14:31 Currently or been in a relationship where the following occur: I choose not to answer Const General: alert; No acute distress Eyes Conjunctivae: conjunctivae normal Resp Auscultation: clear to auscultation bilaterally Cardio Rate: regular rate Rhythm: regular rhythm GI Inspection: Yes normal to inspection Extrem General: Yes normal to inspection and No edema Coding Level of Care Code Est Pt Level 4 (42413) Complex EM visit Add On G2211 Diagnoses Hypercholesterolemia E78.00 Impaired fasting blood sugar R73.01 Abnormal TSH R79.89 Obesity (BMI 30-39.9) E66.9 GERD (gastroesophageal reflux disease) K21.9 Hepatic steatosis K76.0 Tubular adenoma of colon D12.6 Acute cough R05.1 Cough type: acute High serum ferritin R79.89 Hypersomnia G47.10 Chest pain R07.9 Assessment & Plan Assessment & Plan (1) Hypercholesterolemia: Code(s): E78.00 - Pure hypercholesterolemia, unspecified Category: Medical Plan: Avoid fried foods, chicken skin, eggs, butter margarine, pastries and meat. Be it pork or beef they have a lot of cholesterol LDL goal of less than 130 and triglyceride of less than 150 recent blood work normal (2) Impaired fasting blood sugar: Code(s): R73.01 - Impaired fasting glucose Category: Medical Plan: Decrease the amount of carbohydrate intake, pasta, bread, rice and potatoes are all sugar and that is aside from all the sweet stuff, remember that fruits are good but they are Sweet also. (3) Abnormal TSH: Code(s): R79.89 - Other specified abnormal findings of blood chemistry Category: Medical Plan: Resolved (4) Obesity (BMI 30-39.9): Code(s): E66.9 - Obesity, unspecified Category: Medical Plan: Diet and exercise (5) GERD (gastroesophageal reflux disease): Code(s): K21.9 - Gastro-esophageal reflux disease without esophagitis Category: Medical Plan: Avoid the foods that causes that usually spicy foods, tomato products, juices, coffee, soda and foods that your sensitive to. After eating do not lie down, allow 3-4 hours before in lie down. And keep the head of bed above 30 degrees to avoid the acid from going up. On omeprazole (6) Hepatic steatosis: Code(s): K76.0 - Fatty (change of) liver, not elsewhere classified Category: Medical Plan: Low-fat diet and exercise (7) Tubular adenoma of colon: Code(s): D12.6 - Benign neoplasm of colon, unspecified Category: Medical Plan: Advised to be repeated in 3-5 years (8) Cough: Code(s): R05.9 - Cough, unspecified Category: Medical Qualifiers: Cough type: acute Qualified Code(s): R05.1 - Acute cough Plan: PFT is negative (9) High serum ferritin: Code(s): R79.89 - Other specified abnormal findings of blood chemistry Category: Medical Plan: Resolving (10) Hypersomnia: Code(s): G47.10 - Hypersomnia, unspecified Category: Medical (11) Chest pain: Code(s): R07.9 - Chest pain, unspecified Category: Medical Plan The patient has a history of obesity, with a recent weight of 299 pounds, down from 304 pounds in September. He has been diagnosed with Gastroesophageal Reflux Disease (GERD) and was on omeprazole, which he stopped due to side effects. He has been advised to switch to famotidine. The patient is managing hypercholesterolemia, with a target LDL goal of less than 130 mg/dL and triglycerides less than 150 mg/dL. Recent blood work showed normal cholesterol levels. He has a history of anemia, with recent blood work revealing normal blood counts and renal function. Iron levels have decreased from 1,222 to 1,005, but remain above the normal range. Hepatic steatosis was identified via abdominal ultrasound, and liver function tests have shown improvement. The patient is advised to maintain a healthy diet and exercise. The patient underwent a colonoscopy in November 2024, during which three tubular adenomas were removed. These were benign, but the patient is on a shorter follow-up schedule. The patient reports experiencing chest tightness, dizziness, and fatigue, affecting his activities. A stress test has been scheduled to evaluate his cardiac function. Orders: Orders RT home sleep study Today G47.10 - Hypersomnia, unspecified CA stress test Today R07.9 - Chest pain, unspecified Referrals Hematology & Oncology Referral R79.89 - Other specified abnormal findings of blood chemistry Medications: New famotidine 20 mg PO BEDTIME 90 tabs 0RF K21.9 - Gastro-esophageal reflux disease without esophagitis
[2025-02-04 14:19] VITALS: BP 128/68; PULSE 94; TEMP 36.3; O2SAT 98; BMI 36.4
--- OUTSIDE RECORDS SUMMARY | 2025-02-04 15:11 | XMS_ITS | Patient Health Record ---
Author Organization [facility] Address [address] [place] [address] Care Team Providers Care Game Manager Name Role Phone Tavares Ty MD Primary Care Provider Stephen Hale Jr [phone] Allergies No Known Allergies Results Component Value Reference Range Notes Pathology Reviewed date:11/22/2024 11:12:48 AM Interpretation: Performing Lab:[facility], [place], [address] [place] [phone] Notes/Report: Reason For Referral No Information Medications [...] Problem Status W/U Status Risk Notes Problem [id number] Abnormal upper gastrointestinal barium series (R93.3) Active confirmed Problem [id number] Elevated LFTs (R94.5) Active confirmed Vital Signs Blood pressure diastolic 77 mm Hg 10/25/2024 Height 76 in 10/25/2024 Blood pressure systolic 111 mm Hg 10/25/2024 Weight 308 lbs 10/25/2024 BMI 37.49 kg/m2 10/25/2024 Encounters Encounter Location Date Provider Diagnosis [facility] Outpatient [address] [place] [id number] 11/16/2024 Stephen Leigh Jr Abnormal findings in stool R19.5 and Colon polyps K63.5 [facility] [address] [place] [address] 10/25/2024 Stephen Leigh Jr Abnormal findings in stool R19.5 [facility] [address] [place] [address] 11/22/2024 Stephen Leigh Jr Assessments Encounter Date [...] Insured Coverage Start Date Coverage End Date [facility] [address] [place] [address] [id number] JOSE ALEJANDRO CLAIRE Self - patient is the insured Medical (General) History Medical History History ICD Code disc disease acne diarrhea Gastroesophageal reflux dise ase, EGD 04/30, no H. pylori or Mcintosh's esophagus. Surgical History Surgery Date(Month/Year) cholecystectomy Nasal surgery tonsillectomy Tympanostomy tube placement
== END 2025-02-04 15:07 | disposition home or self-care (01) ==
LOC: HO.HMCH 13:51
PROVIDERS: PCP Internal Medicine; Visit Provider Internal Medicine
DX: E78.00 Pure hypercholesterolemia, unspecified (principal); R73.01 Impaired fasting glucose; E66.9 Obesity, unspecified; Z68.36 Body mass index [BMI] 36.0-36.9, adult; R79.89 Other specified abnormal findings of blood chemistry; K21.9 Gastro-esophageal reflux disease without esophagitis; K76.0 Fatty (change of) liver, not elsewhere classified; D12.6 Benign neoplasm of colon, unspecified; R05.1 Acute cough; G47.10 Hypersomnia, unspecified; R07.9 Chest pain, unspecified

== ENCOUNTER 2025-02-21 15:21 | Emergency (ER) | payer OTHER, SELFPAY ==
--- OUTSIDE RECORDS SUMMARY | 2023-07-22 11:40 | XMS_ITS | Continuity of Care Document ---
Author Organization [facility] Address [address] [place] [address] Phone Care Team Providers Care Stop Attacher Name Role Phone Unavailable Unavailable Unavailable Medications Medication Instructions Dosage Effective Dates (start - stop) Status Comments METFORMIN HCL (unknown strength) take 1 tablet by oral route 2 times every day Not Available - Active cephalexin 500 mg capsule take 1 capsule by oral route every 12 hours - No Longer Active Procedures Procedure Date Offic/outpt E&m [place] [id number] 4 Services provided in an urgent care [facility] er Office Visit Value Care Value Care Enrollment - Clinic 24 Advance Directives Directive Yes / No Effective Date File Name No Information Encounters Encounter Description Practice Location Reason(s) For Visit Diagnoses Date Provider Providers Copied on Encounter [facility], [address], [place], [place], [id number], tel:[phone] [facility] No Information 4 No Information Offic/outpt E&m [address] [facility], [address], [place], [place], [id number], tel:[phone] [facility] Foot pain/injur y (chief complaint) Elevated blood pressure readingDiabetic ulcer of left midfoot associated with type 2 diabetes mellitus, with fat layer exposedNon-press ure chronic ulcer of left heel and midfoot with fat layer exposed 4 No Information Family History Family Member Type Diagnosis Age At Onset No Information Payers Payer name Insurance type Covered alliance party ID Authoriza tion(s) [facility] [id number] Social History Type Description Quantity Date Captured Comments Alcohol Use Details Unknown Caffeine Use Details Unknown Tobacco Use Status No Information Smoking Status No Information Sex Male Chief Complaint And Reason For Visit No Information Reason For Referral Reason For Referral No Information Plan Of Treatment Date Type Action Status Referral Ordered: Referrals: Wound Care. Evaluate and treat ordered History Of Present Illness Encounter Date Complaint History Of Prese nt Illness Foot pain/injury Duration: 1 Mon . Severity level is moderate- severe. It occurs constantly and is worsening. Location: left foot (bottom of foot). The pain is aching and throbbing. Context: there is no injury. The pain is aggravated by walking. The pain is relieved by rest. Associated symptoms include limping, nocturnal pain, numbness and tingling in the legs. Additional information: WEEPING WOUND PROGRESSIVE IN SIZE AND PAIN PLANTAR L FOOT. T2DM. HX NEUROPATHY. Functional Status Date Functional Assessmen t No Information Instructions Date Instruction Additional Infor mation Start Keflex antibio tic and complete entire 10 day course.Keep area clean and dry with mild soap and warm water daily. Apply a clean, sterile dressing each day after bathing to reduce friction to the site.Wear comfortable, closed toe shoes and clean socks whenever outdoors to protect feet.Elevate foot above the level of your heart during periods of rest.Follow up today with:[facility] at [address] [place], [address], [place] [phone] referral is attached. Related to Diabetic ulcer of left midfoot associated with type 2 diabetes mellitus, with fat layer exposed Follow up with your primary care doctor to evaluate blood pressure. Related to Elevated blood pressure reading Assessments Type Assessment Date No Information Patient Care Teams Name Effective Dates (start - stop) Status Members No Information
--- OUTSIDE RECORDS SUMMARY | 2024-11-16 07:00 | XMS_ITS ---
Author Organization [facility] Address [address] [place] [address] Care Team Providers Care Concrete Laborer Name Role Phone Tavares Ty MD Primary Care Provider Stephen Hale Jr REASON FOR VISIT abnormal findings in stool Encounters Encounter Location Date Provider Diagnosis [facility] [place] Outpatient [address] [place], [place] [phone] 11/16/2024 Stephen Leigh Jr Abnormal findings in stool R19.5 and Colon polyps K63.5 Assessments Encounter Date Diagnosis (ICD Code) Assessment Notes Treatment Notes Treatment Clinical Notes Section Notes 11/16/2024 Abnormal findings in stool (ICD-10 - R19.5) 11/16/2024 Colon polyps (ICD-10 - K63.5) Plan Of Treatment No Information Progress Notes * JOSE ALEJANDRO ANDERSON SrDOB: (50 yo M)Acc No.[id number]:11/16/2024 COLON WITH MAC Patient: Jose Angel RODRIGUEZ JOSE ALEJANDRO [place] Sr Provider: Hernandez Leigh MD :1975 A ge:49 Y S ex:Male Date:11/16/2024 Address:[address] [place], [place] [phone] Pcp:Tavares Ty MD Subjective: * Chief Complaints: [...] 11/16/2024 Generated for Lisa pineda/Lennox/Bushraitting on: 0 02/21/2025 09:38 PM EDT
--- NOTE | ~2025-02-21 | XR_ITS ---
CLINICAL HISTORY: sob 1 view chest x-ray Comparison: CR/NC/SR - XR CHEST 2 VIEWS - 07/19/24 14:38 EST Findings: The lungs are clear. Heart size is normal. No acute fracture. IMPRESSION: 1. No acute findings. This document has been electronically signed by: Jerson Metcalf MD on 02/21/2025 23:05:14
[2025-02-21 15:41] VITALS: BP 141/69; PULSE 90; RESP 16; TEMP 36.6; O2SAT 99; BMI 38.0
--- NOTE | 2025-02-21 15:43 | ECG_ITS ---
Test Reason : PALPITATIONS Blood Pressure : */* mmHG Vent. Rate : 93 BPM Atrial Rate : 93 BPM P-R Int : 180 ms QRS Dur : 94 ms QT Int : 364 ms P-R-T Axes : 44 -4 31 degrees QTcB Int : 452 ms Normal sinus rhythm Cannot rule out Inferior infarct , age undetermined Abnormal ECG No previous ECGs available Referred By: Khloe Angel Electronically Signed By: MARTHA ZARATE MD
--- NOTE | 2025-02-21 15:44 | ED.GENADULT ---
HPI - General Adult General Chief complaint: General Medical Stated complaint: dizziness, headache, tightness in chest Time Seen by Provider: 02/21/25 21:07 Source: patient Limitations: no limitations History of Present Illness ED Provider: Josephine Mendoza PA-C HPI narrative: 50-year-old male with a history of hyperlipidemia, GERD, morbid obesity, who presents with palpitations for weeks. Patient states he has been having intermittent episodes of racing heart rate. When symptoms present, he feels dizzy in the sense that he can not catch his breath. Denies concurrent chest pain. Patient has pending follow up with his primary care provider. Related Data Previous Rx's ?Medication ?Instructions ?Recorded albuterol sulfate 90 mcg/actuation 1 inh inhalation QID PRN shortness 10/14/24 aerosol inhaler of breath or wheezing #6.7 grams famotidine 20 mg tablet 20 mg PO BEDTIME #90 tabs 02/04/25 colestipol 5 gram oral granules 5 g PO BID #500 grams 02/27/25 (Colestid) Allergies Allergy/AdvReac Type Severity Reaction Status Date / Time No Known Drug Allergies Allergy Unknown NONE Verified 02/21/25 15:46 Review of Systems Review of Systems: Yes all other systems are reviewed and are negative Constitutional: Constitutional: Denies fatigue and Denies fever(s) Cardiovascular: Cardiovascular: Denies chest pain, Reports palpitations and Denies dyspnea Respiratory: Respiratory: Denies dyspnea Gastrointestinal: Gastrointestinal: Denies abdominal pain, Denies nausea and Denies vomiting Endocrine: Endocrine: Denies fatigue and Reports palpitations PMF Past Medical History Attestation statement: The following information was validated with the patient. Medical History (Updated 02/22/25 @ 00:00 by Orlando Thomas) Cough Acute respiratory disease Left breast mass Acne Hypercholesterolemia GERD (gastroesophageal reflux disease) Vitamin D deficiency Obesity (BMI 30-39.9) Surgical History History of esophagogastroduodenoscopy (EGD) (~2018) History of placement of ear tubes Hx of tonsillectomy History of cholecystectomy Family History Family History Mother Myocardial infarct CVA (cerebral vascular accident) Maternal Aunt Myocardial infarct Paternal Aunt Brain cancer Paternal Uncle Throat cancer Prostate carcinoma Social History Social History (Updated 02/04/25 @ 14:38 by KORI Leiva) Housing: House Alcohol intake: never Patient Tobacco Use Status: Never used Tobacco e-Cigarette/Vaping Use: Never Used Second Hand Smoke Exposure: No service: No Current occupational status: employed Current occupational exposures/hazards: No Cognitive needs: No Hearing needs: No Vision needs: No Physical Exam ED Vital Signs: Vital Signs - 24 hr 02/21/25 15:41 02/21/25 20:46 Temperature 97.8 F 98.2 F Pulse Rate 90 88 Respiratory Rate 16 18 Blood Pressure 141/69 H 138/72 Pulse Oximetry 99 99 Oxygen Delivery Method Room Air Room Air BMI result Body Mass Index 38.0 Const Other: Alert well-appearing Orientation/consciousness: patient oriented x3 Resp Effort & Inspection: normal respiratory effort Cardio Other: Normal peripheral perfusion Skin Other: Warm dry no rash Neuro General: patient oriented x3, gait normal, no focal motor deficits and CN's II-XI intact bilaterally Psych Other: Cooperative Course Course Course Narrative: This is a Rapid Medical Examination (RME) performed by Tyree Angel PA-C in triage. Full HPI, ROS, assessment and treatment plan per primary provider in the Main ED. Hx: 50 yo M here for eval of headache, dizziness (described as a rollar coaster dropping), and chest tightness x2 mo. lab work performed in July - was told he had high iron levels. Plan: labs, ekg Medical Decision Making Medical Decision Making MDM Narrative: 50-year-old male with a history of hyperlipidemia, GERD, morbid obesity, who presents with palpitations for weeks. Patient states he has been having intermittent episodes of racing heart rate. When symptoms present, he feels dizzy in the sense that he can not catch his breath. Denies concurrent chest pain. Patient has pending follow up with his primary care provider. Problem: Hyperlipidemia, obesity History: Per patient I have considered the following differential diagnoses: New arrhythmia, anemia, electrolyte abnormality, dehydration, ACS Plan: Screening labs including a cardiac enzyme and EKG with a chest x-ray obtained from triage. His symptoms are not consistent with a ACS, he has a few risk factors. No new arrhythmia documented on the EKG. We have not found any underlying organic cause to account for the palpitations and dizziness; i.e. anemia dehydration electrolyte abnormality. I discussed with the patient the neck subsequent step would be to have a Holter monitor trial as an outpatient. He is in agreement with the plan. I have independently reviewed the following tests: Labs: No leukocytosis, not anemic, no electrolyte abnormality, troponin less than 2.7 EKG: Normal sinus rhythm, rate of 93, no ischemic changes no ectopy QTC 452 Chest x-ray:Findings: The lungs are clear. Heart size is normal. No acute fracture. IMPRESSION: 1. No acute findings. Differential Diagnosis Differential Diagnoses: The differential diagnosis associated with the presentation includes See medical decision-making Admission/Observation Consideration of admission/observation: Escalation of care including admission/observation considered Not applicable Lab Data MDM Lab Attestation statement: I reviewed the patient's lab results. 02/21/25 15:56 02/21/25 15:56 Labs: Lab Results 02/21/25 Range/Units 15:56 WBC 8.2 (4.8-10.8) X10*3/uL RBC 5.05 (4.60-5.80) X10*6/uL Hgb 13.6 L (14.0-18.0) g/dl Hct 40.4 L (42.0-52.0) % MCV 80.0 (80.0-98.0) fL MCH 26.9 L (27.0-33.0) pg MCHC 33.7 (31.0-36.0) g/dl RDW 14.4 (11.0-16.0) % Plt Count 285 (160-400) X10*3/uL MPV 9.3 L (9.4-12.4) fL Immature Gran % (Auto) 0.2 (0.0-0.4) % Neut % (Auto) 68.2 (45-73) % Lymph % (Auto) 21.5 (20-40) % Tucker % (Auto) 7.7 (2-11) % Eos % (Auto) 1.7 (0-4) % Baso % (Auto) 0.7 (0-2) % Lymph # (Auto) 1.8 (1.2-4.9) X10*3/uL Tucker # (Auto) 0.6 (0.1-1.2) X10*3/uL Eos # (Auto) 0.1 (0.0-0.4) X10*3/uL Baso # (Auto) 0.1 (0.0-0.2) X10*3/uL Abs Immat Gran (auto) 0.02 (0.00-0.03) X10*3/uL Absolute Neuts (auto) 5.6 (2.0-8.3) x10*3/uL Absolute Nucleated RBC 0.000 (0.0-0.012) X10*3/uL Nucleated RBC % (auto) 0.0 (0.0-0.2) /100WBC Sodium 142 (135-145) mmol/L Potassium 3.9 (3.3-5.1) mmol/L Chloride 109 H (96-108) mmol/L Carbon Dioxide 27 (22-29) mmol/L Anion Gap 10 L (12-20) BUN 12 (9-16) mg/dL Creatinine 0.85 (0.5-1.4) mg/dL Estim Creat Clear Calc 146.3 Estimated GFR > 60 Random Glucose 94 (60-115) mg/dL Calcium 9.2 (8.4-10.2) mg/dL Magnesium 2.3 (1.6-2.6) mg/dL Total Bilirubin 0.3 (0.0-1.0) mg/dL AST 26 (5-37) U/L ALT 53 H (0-40) U/L Alkaline Phosphatase 54 (39-117) U/L Troponin I High Sens < 2.7 (<3.5-35.0) ng/L Total Protein 7.3 (6.5-8.0) g/dL Albumin 4.7 (3.5-5.0) g/dL Independent Interpretation I performed an independent interpretation of an: EKG Radiology Impression Discussion of test interpretation with radiology: I have reviewed the radiologist's reading. Discharge Plan Discharge Clinical Impression: Heart palpitations Patient Disposition: Home, Self-Care Instructions: Heart Palpitations (ED) Additional Instructions: All of your screening labs including a cardiac enzymes were normal. There were no concerning changes on your EKG, including no documented new abnormal rhythm of your heart. The chest x-ray was clear. In regard to your palpitations, the next subsequent step would be to have a Holter monitor trial as an outpatient. You can have discussion with your primary care provider about expediting this process for you. The last ferritin level that I see in the system is from January 30 of this year, the level was 1005 Prescriptions: No Action albuterol sulfate 90 mcg/actuation HFA aerosol inhaler 1 inh inhalation QID PRN (Reason: shortness of breath or wheezing) Qty: 6.7 1RF colestipol [Colestid] 5 gram granules 5 g PO BID Qty: 500 0RF famotidine 20 mg tablet 20 mg PO BEDTIME Qty: 90 0RF Stand Alone Forms: Work/School Release Interventions: ED Discharge Assessment Last Done: 02/21/25 22:46 Discharge Date/Time: 02/21/25 22:52 Print Language: Citizen Of [place]
[2025-02-21 16:00] LABS: MANUAL DIFF FLAG NO
[2025-02-21 16:13] LABS: Hematocrit 40.4 % (42.0-52.0); Hemoglobin 13.6 g/dl (14.0-18.0); Imm Gran Abs Auto 0.02 X10*3/uL (0.00-0.03); Imm Gran Pct Auto 0.2 % (0.0-0.4); Lymphocytes Absolute Auto 1.8 X10*3/uL (1.2-4.9); Mean Corpuscular HGB Conc 33.7 g/dl (31.0-36.0); Mean Corpuscular Hemoglobin 26.9 pg (27.0-33.0); Mean Corpuscular Volume 80.0 fL (80.0-98.0); NRBC Abs Auto 0.000 X10*3/uL (0.0-0.012); NRBC Pct Auto 0.0 /100WBC (0.0-0.2); Platelet Count 285 X10*3/uL (160-400); Red Blood Count 5.05 X10*6/uL (4.60-5.80); White Blood Count 8.2 X10*3/uL (4.8-10.8)
[2025-02-21 16:16] LABS: Alanine Aminotransferase 53 U/L (0-40); Albumin Level 4.7 g/dL (3.5-5.0); Alkaline Phosphatase 54 U/L (39-117); Anion Gap 10 (12-20); Aspartate Amino Transferase 26 U/L (5-37); Blood Urea Nitrogen 12 mg/dL (9-16); Calcium 9.2 mg/dL (8.4-10.2); Carbon Dioxide 27 mmol/L (22-29); Chloride 109 mmol/L (96-108); Creatinine Clr Calc Pharmacy 146.3; Estimated Glomerular Filt Rate > 60; Magnesium 2.3 mg/dL (1.6-2.6); Potassium 3.9 mmol/L (3.3-5.1); Sodium 142 mmol/L (135-145); Total Protein 7.3 g/dL (6.5-8.0)
[2025-02-21 16:24] LABS: Troponin-I High Sensitivity < 2.7 ng/L (<3.5-35.0)
[2025-02-21 20:46] VITALS: BP 138/72; PULSE 88; RESP 18; TEMP 36.8; O2SAT 99
--- OUTSIDE RECORDS SUMMARY | 2025-02-21 21:38 | XMS_ITS | Patient Health Record ---
Author Organization [facility] Address [address] [place] [address] Care Team Providers Care Hobbing Machine Operator Name Role Phone Tavares Ty MD Primary Care Provider Stephen Hale Jr [phone] Allergies No Known Allergies Results Component Value Reference Range Notes Pathology Reviewed date:11/22/2024 11:12:48 AM Interpretation: Performing Lab:[facility], [address] [place] [phone] Notes/Report: Reason For Referral No Information Medications [...] Problem Status W/U Status Risk Notes Problem [id number] Abnormal upper gastrointestinal barium series (R93.3) Active confirmed Problem 862759964 Elevated LFTs (R94.5) Active confirmed Vital Signs Blood pressure diastolic 77 mm Hg 10/25/2024 Height 76 in 10/25/2024 Blood pressure systolic 111 mm Hg 10/25/2024 Weight 308 lbs 10/25/2024 BMI 37.49 kg/m2 10/25/2024 Encounters Encounter Location Date Provider Diagnosis [facility] Out[place] [address] [place] [id number] 11/16/2024 Setphen Leigh Jr Abnormal findings in stool R19.5 and Colon polyps K63.5 [facility] [address] [place] [address] 10/25/2024 Stephen Leigh Jr Abnormal findings in stool R19.5 [facility] [address] [place] [address] 11/22/2024 Stephen Leigh Jr Assessments Encounter Date [...] Insured Coverage Start Date Coverage End Date [facility] [address] [place] [address] [id number] JOSE ALEJANDRO CLAIRE Self - patient is the insured Medical (General) History Medical History History ICD Code disc disease acne diarrhea Gastroesophageal reflux dise ase, EGD 04/30, no H. pylori or Mcintosh's esophagus. Surgical History Surgery Date(Month/Year) cholecystectomy Nasal surgery tonsillectomy Tympanostomy tube placement
[2025-02-21 22:00] VITALS: BP 135/92; PULSE 81; RESP 16; TEMP 36.6; O2SAT 98
[2025-02-21 22:46] VITALS: BP 138/72; PULSE 88; RESP 18; TEMP 36.8; O2SAT 99
== END 2025-02-21 22:52 | disposition home or self-care (01) ==
PROVIDERS: Physician Assistant Medical; Emergency Provider Emergency Medicine; PCP Internal Medicine
DX: R00.2 Palpitations (principal); R51.9 Headache, unspecified; E66.9 Obesity, unspecified; Z68.38 Body mass index [BMI] 38.0-38.9, adult; Z79.899 Other long term (current) drug therapy
CPT/HCPCS: 36415; 71045; 80053; 83735; 84484; 85025; 93005; 99283; 99284

== ENCOUNTER → 2025-02-21 15:43 | Outpatient (BNV) | payer OTHER, SELFPAY | PROVIDERS: Emergency Provider Emergency Medicine; PCP Internal Medicine; Visit Provider Internal Medicine Cardiovascular Disease | DX: R94.31 Abnormal electrocardiogram [ECG] [EKG] (principal); R00.2 Palpitations | CPT/HCPCS: 93010 ==

== ENCOUNTER → 2025-02-21 21:58 | Outpatient (BNV) | payer OTHER, SELFPAY | PROVIDERS: Emergency Provider Emergency Medicine; PCP Internal Medicine; Visit Provider Radiology Diagnostic Radiology | DX: R06.02 Shortness of breath (principal) | CPT/HCPCS: 71045 ==

== ENCOUNTER → 2025-03-05 10:02 | Outpatient (REF) | payer OTHER, SELFPAY ==
--- OUTSIDE RECORDS SUMMARY | 2024-11-16 07:00 | XMS_ITS ---
Author Organization [facility] Address [address] [place] [address] Care Team Providers Care Marketing Production Specialist Name Role Phone Tavares Ty MD Primary Care Provider Stephen Hale Jr REASON FOR VISIT abnormal findings in stool Encounters Encounter Location Date Provider Diagnosis [facility] Out[facility] [address] [place], [place] [phone] 11/16/2024 Stephen Leigh Jr Abnormal findings in stool R19.5 and Colon polyps K63.5 Assessments Encounter Date Diagnosis (ICD Code) Assessment Notes Treatment Notes Treatment Clinical Notes Section Notes 11/16/2024 Abnormal findings in stool (ICD-10 - R19.5) 11/16/2024 Colon polyps (ICD-10 - K63.5) Plan Of Treatment No Information Progress Notes * JOSE ALEJANDRO ANDERSON SrDOB: (50 yo M)Acc No.[id number]:11/16/2024 COLON WITH MAC Patient: Jose Angel RODRIGUEZ JOSE ALEJANDRO [place] Sr Provider: Hernandez Leigh MD :1975 A ge:49 Y S ex:Male Date:11/16/2024 Address:[address] [place], [place] [phone] Pcp:Tavares Ty MD Subjective: * Chief Complaints: * 1 . Abnormal findings in stool. * Medical History: Objective: * Vitals: Assessment: * Assessment: 1. A bnormal findings in stool - R19.5 (Primary) 2 . C olon polyps - K63.5? Plan: * Treatment: * Procedure Codes: 4 5385 LESION REMOVAL COLONOSCOPY * * The named appointment provid er may or may not be the originator of this progress note, and it is not deemed complete until electronically signed by the appointment provider. Sign off status: Pending * Provider: Hernandez Leigh MD Date: 0 11/16/2024 Generated for Lisa pineda/Lennox/Bushraitting on: 0 03/05/2025 12:09 PM EDT
--- NOTE | 2025-03-05 10:07 | CA_ITS ---
Acquisition Time: 2025-03-05 10:14:50 Total Exercise Time: 00:07:00 Test Indications: CP Medications: ALBUTEROL INHALER COLOSTIPOL FAMOTIDIONE Protocol: EDOUARD Max HR: 162 BPM 94% of Pred: 172 BPM Max BP: 150/58 mmHG Max Work Load: 8.5 METS Exercise stress test with exercise 7 mins of Edouard Protocol, achieving 93% MPHR, without any reported symptoms of chest pain or SOB, without any arrythmias, with normotensive response to exercise. Without any EKG changes meeting criteria for ischemia. In recovery, pt continued to feel well. Test reviewed with Dr. Escalona. Referred By: Tavares Ty Electronically Signed By: Adria Ramirez
--- OUTSIDE RECORDS SUMMARY | 2025-03-05 12:09 | XMS_ITS | Patient Health Record ---
Author Organization [facility] Address [address] [place] [address] Care Team Providers Care Making Machine Catcher Name Role Phone Tavares Ty MD Primary Care Provider Stephen Hale Jr Allergies No Known Allergies Results Component Value Reference Range Notes Pathology Reviewed date:11/22/2024 11:12:48 AM Interpretation: Performing Lab:[facility], [address] [place] [phone] Notes/Report: Reason For Referral No Information Medications [...] Problem Status W/U Status Risk Notes Problem [id number] Abnormal upper gastrointestinal barium series (R93.3) Active confirmed Problem 899511429 Elevated LFTs (R94.5) Active confirmed Vital Signs Blood pressure diastolic 77 mm Hg 10/25/2024 Height 76 in 10/25/2024 Blood pressure systolic 111 mm Hg 10/25/2024 Weight 308 lbs 10/25/2024 BMI 37.49 kg/m2 10/25/2024 Encounters Encounter Location Date Provider Diagnosis [facility] [place] [place] [address] [place] [id number] 11/16/2024 Stephen Leigh Jr Abnormal findings in stool R19.5 and Colon polyps K63.5 [facility] [address] [place] [address] 10/25/2024 Stephen Leigh Jr Abnormal findings in stool R19.5 [facility] [address] [place] [address] 11/22/2024 Stephen Leigh Jr Assessments Encounter Date [...] Insured Coverage Start Date Coverage End Date [facility] [address] [place] [address] [id number] JOSE ALEJANDRO CLAIRE Self - patient is the insured Medical (General) History Medical History History ICD Code disc disease acne diarrhea Gastroesophageal reflux dise ase, EGD 04/30, no H. pylori or Mcintosh's esophagus. Surgical History Surgery Date(Month/Year) cholecystectomy Nasal surgery tonsillectomy Tympanostomy tube placement
== END ==
LOC: HO.CARD 10:02
PROVIDERS: PCP Internal Medicine; Visit Provider Internal Medicine
DX: R07.9 Chest pain, unspecified (principal)
CPT/HCPCS: 93017

== ENCOUNTER → 2025-03-05 10:07 | Outpatient (BNV) | payer OTHER, SELFPAY | PROVIDERS: PCP Internal Medicine | DX: R07.9 Chest pain, unspecified (principal) | CPT/HCPCS: 93016; 93018 ==

== ENCOUNTER → 2025-03-15 13:00 | Outpatient (BNV) | payer OTHER, SELFPAY | PROVIDERS: PCP Internal Medicine; Referring Provider Internal Medicine; Visit Provider Nurse Practitioner Family | DX: D64.9 Anemia, unspecified (principal); R79.89 Other specified abnormal findings of blood chemistry | CPT/HCPCS: 99204 ==

== ENCOUNTER → 2025-05-13 14:49 | Outpatient (REF) | payer OTHER, SELFPAY | LOC: HO.SL 14:49 | PROVIDERS: PCP Internal Medicine; Visit Provider Internal Medicine | DX: G47.10 Hypersomnia, unspecified (principal) | CPT/HCPCS: 95806 ==

== ENCOUNTER → 2025-05-18 14:55 | Outpatient (BNV) | payer OTHER, SELFPAY | PROVIDERS: PCP Internal Medicine; Visit Provider Psychiatry & Neurology Neurology | DX: G47.33 Obstructive sleep apnea (adult) (pediatric) (principal); G47.10 Hypersomnia, unspecified | CPT/HCPCS: 95806 ==